=== PATIENT | male | born 1945 | race Caucasian/White ===

== ENCOUNTER 2019-03-17 13:21 | Outpatient (RCR) | payer OTHER, MEDICARE, MEDICAID, SELFPAY ==
[2019-03-17 16:15] LABS: Specific Gravity, Urine 1.005 (1.005-1.030); Urine Appearance SL Hazy (CLEAR); Urine Color Straw (Yellow); pH Urine 5 (5-7)
[2019-03-17 16:16] LABS: Add Urine Microscopic? YES; Bilirubin Urine Neg (NEGATIVE); Blood Urine 3+ (Negative); Glucose Urine UA Norm (Normal); Ketones Urine Negative (Negative); Leukocyte Esterase Urine Negative (Negative); Nitrate Urine Positive (Negative); Protein Urine Neg (Negative); Urobilinogen Urine Norm (Negative)
[2019-03-17 16:17] LABS: Add Urine Culture? Yes; Bacteria Urine 3+; Squamous Epithelial Cell Urine RARE (0-5)
== END 2019-04-02 23:59 | disposition home or self-care (01) ==
LOC: LAB 13:21
PROVIDERS: Family Provider Family Medicine; Visit Provider Internal Medicine
DX: Z01.89 Encounter for other specified special examinations (principal)
CPT/HCPCS: 81003; 87077; 87086; 87186

== ENCOUNTER 2019-05-04 08:01 | Inpatient (IN) | payer MEDICARE, MEDICAID, OTHER, SELFPAY ==
[2019-05-04] VITALS (12 sets, daily range): BP systolic 84–125; BP diastolic 50–75; PULSE 67–98; RESP 16–32; TEMP 36.4–37.3; O2SAT 78–98; BMI 28.2
--- NOTE | 2019-05-04 08:06 | ED_ITS ---
Entered by Nelly Sosa, acting as scribe for Kodak Dawkins DO HPI - SOB/Dyspnea General: Chief Complaint: General Medical Stated Complaint: weakness, dyspnea Time Seen by Provider: 05/04/19 08:10 Source: EMS Mode of arrival: EMS History of Present Illness: MD elicited complaint: shortness of breath and cough Onset (ago): day(s) (yesterday) Timing: constant and progressively worsening Severity: moderate Exacerbating factors: coughing Relieving factors: nothing Associated symptoms: Reports chest congestion and cough Treatment prior to arrival: oxygen Review of Systems General: Reports: 10 or more systems reviewed and unremarkable except in HPI and below and ROS unobtainable due to medical condition (pts is from assisted unable to answer questions) Resp: Reports: chest congestion PFSH ED PFSH: Social History Smoking and tobacco status: former smoker Physical Exam Const: COMMON NORMALS: average body habitus, no limitations, healthy appearing and well nourished HENMT: COMMON NORMALS: normocephalic, head/scalp atraumatic, hearing grossly normal bilaterally, external ears normal, EAC's normal, TM's normal bilaterally, external nose normal, nasal mucous membranes and turbinates normal, moist oral mucous membranes, oropharynx normal, dentition normal and gingiva normal HEAD & SCALP: normocephalic and atraumatic NOSE: external nose normal and nasal mucous membranes and turbinates normal EXTERNAL EAR: Yes external ears normal EXTERNAL AUDITORY CANAL: EAC's normal TYMPANIC MEMBRANE: TM's normal bilaterally Eye: COMMON NORMALS: PERRL, EOMs intact bilaterally, conjunctivae normal, no scleral icterus, no papilledema, normal visual nelson by confrontation and fundi normal bilaterally CONJUNCTIVA: Yes conjunctivae normal PUPIL: Yes PERRL DIRECT OPHTHALMOSCOPY: Yes no papilledema and Yes fundi normal bilaterally Neck/C-Spine: COMMON NORMALS: full ROM, no lymphadenopathy, supple, no meningeal signs, no JVD, thyroid normal and no carotid bruits THYROID: thyroid normal Chest: COMMONS NORMALS: inspection of chest normal and palpation of chest normal Cardio: COMMON NORMALS: no JVD, regular rate, regular rhythm, S1 normal heart sound, S2 normal heart sound, no gallops, no clicks, no murmurs, no rub and peripheral pulses 2+ throughout RATE: regular rate RHYTHM: regular rhythm HEART SOUNDS: S1 normal and S2 normal PERIPHERAL PULSES: pulses 2+ throughout GI: COMMON NORMALS: normal to inspection, nondistended, normoactive bowel sounds, soft to palpation, non-tender, no hepatosplenomegaly, no masses and no bruits PALPATION: Yes soft and Yes no hepatosplenomegaly : COMMON NORMALS: Yes no CVA tenderness BLADDER/KIDNEY EXAM: Yes no CVA tenderness Back/Pelvis: COMMON NORMALS: no CVA tenderness, thoracic and lumbar spine normal to inspection, no thoracic nor lumbar tenderness, thoraco-lumbar ROM normal and straight leg raise negative bilaterally Extremity: COMMON NORMALS: normal to inspection, full ROM, normal capillary refill, no joint enlargement, no clubbing, cyanosis or edema, no calf tenderness and no pedal edema Neuro: MENINGEAL SIGNS: Yes no meningeal signs Skin: COMMON NORMALS: no rashes or lesions noted, no wounds, skin turgor normal, no jaundice, no petechiae and no mottling GENERAL SKIN EXAM: no rashes or lesions noted and turgor normal Course Vital Signs: Vital signs: Vital Signs Temperature 98 F 05/04/19 08:03 Pulse Rate 91 05/04/19 08:03 Respiratory Rate 20 H 05/04/19 08:03 Blood Pressure 91/51 05/04/19 08:03 Pulse Oximetry 78 L 05/04/19 08:03 MDM - SOB/Dyspnea Lab Data: Labs: Lab Results 05/04/19 05/04/19 05/04/19 Range/Units 08:47 08:47 08:47 WBC (4.0-10.0) 10^3/ uL RBC (4.1-5.3) 10^6/u L Hgb (11.7-16.6) g/dL Hct (42.0-52.0) % MCV (80-94) fL MCH (28.0-34.0) pg MCHC (30.0-36.0) g/dL RDW (12.1-15.1) % Plt Count (130-400) 10^3/c mm MPV (7.4-10.4) fL Neut % (Auto) % Lymph % (Auto) % [place] % (Auto) % Eos % (Auto) % Baso % (Auto) % Neut # (Auto) (1.8-7.7) 10^3/u L Lymph # (Auto) (0.8-4.8) 10^3/u L [place] # (Auto) (0.2-0.9) 10^3/u L Eos # (Auto) (0.0-0.8) 10^3/u L Baso # (Auto) (0.0-0.1) 10^3/u L Nucleated RBC % (a uto) % Nucleated RBCs # /100WBC PT 14.80 H (10.5-13.3) SECO NDS INR 1.15 (0.8-1.2) Specimen Type Sample Site ABG pH (7.35-7.45) ABG pCO2 (35-45) mmHg ABG pO2 (80.0-100.0) mmH g ABG HCO3 (22-26) mmol/L ABG Base Excess (-2.0-2.0) mmol/ L John Test Hematocrit (42-52) % O2 Delivery Device O2 Liters/Min % FiO2 % Compliance Advisor ID Sodium 127 L (136-145) mmol/L Potassium 7.1 H* (3.5-5.1) mmol/L Chloride 92 L (98-107) mmol/L Carbon Dioxide 19 L (22-29) mmol/L Anion Gap 23.1 H (5-19) BUN 53 H (8-23) mg/dL Creatinine 2.0 H (0.7-1.2) mg/dL Glucose 157 H (65-115) mg/dL Lactic Acid 2.3 H (0.5-2.2) mmol/L Calcium 8.4 L (8.5-10.5) mg/dL Total Bilirubin 0.6 (0.15-1.2) mg/dL AST 69 H (0-40) U/L ALT 37 (0-41) U/L Alkaline Phosphata se 82 (40-130) IU/L Total Protein 7.1 (6.6-8.7) g/dL Albumin 3.0 L (3.5-5.2) g/dL Globulin 4.1 (1.3-4.6) g/dL Urine Color (Yellow) Urine Appearance (CLEAR) Urine pH (5-7) Ur Specific Gravit y (1.005-1.030) Urine Protein (Negative) Urine Glucose (UA) (Normal) Urine Ketones (Negative) Urine Blood (Negative) Urine Nitrate (Negative) Urine Bilirubin (NEGATIVE) Urine Urobilinogen (Negative) mg/dL Ur Leukocyte Erna ase (Negative) Urine RBC (0-2) /hpf Urine WBC (0-5) /hpf Ur Squamous Epith Cells (0-5) Urine Bacteria (NONE) Urine Mucus 05/04/19 05/04/19 05/04/19 Range/Units 08:47 08:51 09:19 WBC 17.7 H (4.0-10.0) 10^3/ uL RBC 3.56 L (4.1-5.3) 10^6/u L Hgb 8.4 L (11.7-16.6) g/dL Hct 31.0 L (42.0-52.0) % MCV 87.1 (80-94) fL MCH 23.6 L (28.0-34.0) pg MCHC 27.1 L (30.0-36.0) g/dL RDW 17.3 H (12.1-15.1) % Plt Count 317 (130-400) 10^3/c mm MPV 11.1 H (7.4-10.4) fL Neut % (Auto) 89.5 % Lymph % (Auto) 2.7 % [place] % (Auto) 7.4 % Eos % (Auto) 0.0 % Baso % (Auto) 0.1 % Neut # (Auto) 15.8 H (1.8-7.7) 10^3/u L Lymph # (Auto) 0.5 L (0.8-4.8) 10^3/u L [place] # (Auto) 1.3 H (0.2-0.9) 10^3/u L Eos # (Auto) 0.0 (0.0-0.8) 10^3/u L Baso # (Auto) 0.0 (0.0-0.1) 10^3/u L Nucleated RBC % (a uto) 0.2 % Nucleated RBCs # 0.0 /100WBC PT (10.5-13.3) SECO NDS INR (0.8-1.2) Specimen Type Arterial Sample Site Radial, left ABG pH 7.31 L (7.35-7.45) ABG pCO2 43.3 (35-45) mmHg ABG pO2 70.2 L (80.0-100.0) mmH g ABG HCO3 21.8 L (22-26) mmol/L ABG Base Excess -4.2 L (-2.0-2.0) mmol/ L John Test Pos Hematocrit 23.2 L (42-52) % O2 Delivery Device Nc O2 Liters/Min 4.0 % FiO2 36.0 % Compliance Advisor ID gd Sodium (136-145) mmol/L Potassium (3.5-5.1) mmol/L Chloride (98-107) mmol/L Carbon Dioxide (22-29) mmol/L Anion Gap (5-19) BUN (8-23) mg/dL Creatinine (0.7-1.2) mg/dL Glucose (65-115) mg/dL Lactic Acid (0.5-2.2) mmol/L Calcium (8.5-10.5) mg/dL Total Bilirubin (0.15-1.2) mg/dL AST (0-40) U/L ALT (0-41) U/L Alkaline Phosphata se (40-130) IU/L Total Protein (6.6-8.7) g/dL Albumin (3.5-5.2) g/dL Globulin (1.3-4.6) g/dL Urine Color Straw (Yellow) Urine Appearance Turbid (CLEAR) Urine pH 6.5 (5-7) Ur Specific Gravit y 1.015 (1.005-1.030) Urine Protein 3+ H (Negative) Urine Glucose (UA) Norm (Normal) Urine Ketones Negative (Negative) Urine Blood 3+ H (Negative) Urine Nitrate Negative (Negative) Urine Bilirubin Neg (NEGATIVE) Urine Urobilinogen Norm (Negative) mg/dL Ur Leukocyte Erna ase 2+ H (Negative) Urine RBC 25-40 H (0-2) /hpf Urine WBC >100 H (0-5) /hpf Ur Squamous Epith Cells 0-4 H (0-5) Urine Bacteria 3+ H (NONE) Urine Mucus 3+ Discharge Plan Discharge Condition: Fair Prescriptions: No Action A&D Ointment See Rx Instructions .ROUTE .COMPLEX RF: 0 metformin 500 mg Tablet 500 mg PO BID RF: 0 acetaminophen 325 mg Tablet 650 mg PO Q4H PRN (Reason: Pain) RF: 0 albuterol sulfate 2.5 mg /3 mL (0.083 %) Solution For Nebulization 2.5 mg INHALATION Q6H PRN (Reason: Shortness Of Breath) RF: 0 nystatin 100,000 unit/gram Ointment 1 applic TOPICAL BID RF: 0 [place] 5-325 mg Tablet 1 - 2 tab PO Q4H PRN (Reason: Pain) RF: 0 loperamide 2 mg Tablet 2 mg PO QID PRN (Reason: Diarrhea) RF: 0 Milk of Magnesia 400 mg/5 mL Suspension 30 ml PO DAILY PRN (Reason: Constipation) RF: 0 Vitamin C 500 mg Tablet 500 mg PO BID RF: 0 bisacodyl 10 mg Suppository 10 mg [place] DAILY PRN (Reason: Constipation) RF: 0 oseltamivir 75 mg Capsule 75 mg PO DAILY RF: 0 ferrous sulfate 325 mg (65 mg iron) Tablet 325 mg PO BID RF: 0 Enema Disposable 19-7 gram/118 mL Enema 118 ml [place] DAILY PRN (Reason: Constipation) RF: 0 Colace 100 mg Capsule 100 mg PO BID RF: 0 Santyl 250 unit/gram Ointment See Rx Instructions .ROUTE .COMPLEX RF: 0 metoprolol tartrate 25 mg Tablet 12.5 mg PO BID RF: 0 selenium sulfide 2.25 % Shampoo 1 applic TOPICAL PRN RF: 0 Calzinc See Rx Instructions .ROUTE .COMPLEX RF: 0 Coding Level of Care Code ED Corporate Intern for Chg Fwd Exam Comprehensive The documentation recorded by the Ian gamble Bridget Annette, accurately reflects the service I personally performed and the decisions made by Mariza solano Donald P, DO May 04, 2019 08:01
--- NOTE | 2019-05-04 08:13 | XR_ITS ---
WS: [id number] XR chest 1V portable [id number] REASON FOR EXAM: dyspnea FINDINGS: The right lower lung shows considerable pleural effusion. The extends to the seventh inters pace. There is coronary bypass changes seen. The left lungs as well aerated. XR/XR chest 1V portable [id number] IMPRESSION: Right pleural effusion
[2019-05-04] MEDS: sodium chloride 0.9% 1,000 ML 250 ML IV (08:36)
[2019-05-04 08:54] LABS: Basophils % 0.1 %; Hemoglobin 8.4 g/dL (11.7-16.6); Lymphocytes # 0.5 10^3/uL (0.8-4.8); Lymphocytes % 2.7 %; Mean Corpuscular HGB Conc 27.1 g/dL (30.0-36.0); Mean Corpuscular Hemoglobin 23.6 pg (28.0-34.0); Mean Corpuscular Volume 87.1 fL (80-94); Mean Platelet Volume 11.1 fL (7.4-10.4); Monocytes # 1.3 10^3/uL (0.2-0.9); Monocytes % 7.4 %; Neutrophils # 15.8 10^3/uL (1.8-7.7); Neutrophils % 89.5 %; Nucleated Red Blood Cells % 0.2 %; Platelet Count 317 10^3/cmm (130-400); Red Blood Count 3.56 10^6/uL (4.1-5.3); Red Cell Distribution Width 17.3 % (12.1-15.1); White Blood Count 17.7 10^3/uL (4.0-10.0)
[2019-05-04] MEDS: piperacillin-tazobactam 4.5 GM in sodium chloride 0.9% (plus) 50 ML IV (09:03)
[2019-05-04 09:09] LABS: ABG PCO2 43.3 mmHg (35-45); ABG PH Result 7.31 (7.35-7.45); Arterial Blood Gas Hematocrit 23.2 % (42-52); Base Excess ABG -4.2 mmol/L (-2.0-2.0); Blood Gas Allen Test Pos; Blood Gas Sample Site Radial, left; Blood Gas Sample Type Arterial; HCO3 ABG 21.8 mmol/L (22-26); Oxygen Device NC; PO2 ABG 70.2 mmHg (80.0-100.0)
[2019-05-04 09:13] LABS: Alanine Aminotransferase 37 U/L (0-41); Alkaline Phosphatase 82 IU/L (40-130); Anion Gap 23.1 (5-19); Blood Urea Nitrogen 53 mg/dL (8-23); Calcium 8.4 mg/dL (8.5-10.5); Carbon Dioxide 19 mmol/L (22-29); Chloride 92 mmol/L (98-107); Globulin 4.1 g/dL (1.3-4.6); Glucose 157 mg/dL (65-115); Lactic Sepsis W/Reflex 2.3 mmol/L (0.5-2.2); Sodium 127 mmol/L (136-145); Total Bilirubin 0.6 mg/dL (0.15-1.2); Total Protein 7.1 g/dL (6.6-8.7)
[2019-05-04 09:20] LABS: Aspartate Amino Transferase 69 U/L (0-40); Potassium 7.1 mmol/L (3.5-5.1)
--- NOTE | 2019-05-04 09:24 | PC.NURSE ---
residential monitor, pulse oximeter and NIBP monitor placed on patient; hall monitor- Lead I, II and III; monitor alarms on.
--- NOTE | 2019-05-04 09:25 | PC.NURSE ---
hoisting laborer, pulse oximeter and NIBP monitor placed on patient; comprehensive ophthalmologist- Lead I, II and III; monitor alarms on.
[2019-05-04 09:26] LABS: INR 1.15 (0.8-1.2)
--- NOTE | 2019-05-04 09:27 | PC.PHAR ---
CONSTANZA FROM [facility] STATES THAT THE PTS ELIQUIS 5MG AND 81MG ASPIRIN WAS DCED ON 04/28/2019
[2019-05-04 09:34] LABS: Add Urine Microscopic? YES; Bilirubin Urine Neg (NEGATIVE); Blood Urine 3+ (Negative); Glucose Urine UA Norm (Normal); Ketones Urine Negative (Negative); Leukocyte Esterase Urine 2+ (Negative); Nitrate Urine Negative (Negative); Protein Urine 3+ (Negative); Specific Gravity, Urine 1.015 (1.005-1.030); Urine Appearance Turbid (CLEAR); Urine Color Straw (Yellow); Urobilinogen Urine Norm (Negative); pH Urine 6.5 (5-7)
[2019-05-04] MEDS: sodium polystyrene sulfonate 15 gm/60 mL Btl PO (09:37)
[2019-05-04] MEDS: insulin regular-human 100 units/1 mL 4 UNIT IVP (09:38)
[2019-05-04 09:39] LABS: RBC Urine 25-40 /hpf (0-2); Squamous Epithelial Cell Urine 0-4 (0-5); WBC Urine >100 /hpf (0-5)
[2019-05-04 09:40] LABS: Add Urine Culture? Yes; Bacteria Urine 3+; Mucus Urine 3+
--- NOTE | 2019-05-04 10:04 | PC.NURSE ---
PHYSICAL ASSESSMENT Chief Complaint: Weakness, Shortness of breath GENERAL / NEURO / PSYCH: Alert. Does not know his name. Does not know the date or time, Does not know his age. He appears comfortable. Denies pain at this time. BLOSSOM COMA SCORE: 14- Confused HEENT: No facial asymmetry noted. Mucous membranes are pink. RESPIRATORY: Not in respiratory distress. Chest nontender. Rhonchi breath sounds noted. CVS: Capillary refill less than 2 seconds. Pulses within normal limits. GI / : Abdomen soft and nontender and normal bowel sounds. SKIN: Skin intact. Skin is warm and dry. Normal skin turgor. - Extremities: Right arm contracted (preexisting) Right leg amputated (above knee) . Patient able to move left arm and leg. Strength appears to be in normal limits for patient.
[2019-05-04 10:38] LABS: Reflex Lactate Order REFLEX LACTIC ORDERD
[2019-05-04 11:28] LABS: Glucose Point of Care 190 mg/dL (70-110)
--- NOTE | 2019-05-04 11:55 | PC.NURSE ---
Patient resting at this time. No needs.
[2019-05-04 12:17] LABS: Lactic Acid level (Lactate) 2.1 mmol/L (0.5-2.2)
--- NOTE | 2019-05-04 12:19 | PC.NURSE ---
Patient to CT via stretcher
--- NOTE | 2019-05-04 12:21 | P.HP_ITS ---
Providers/Chief Complaint Admitting Physician: Adeline Nieves DO Primary Care Provider: Dr. Umberto Terry Chief Complaint: weakness, dyspnea History of Present Illness Blaine Garcia is a 73 year old male with a past medical history of CVA and hypertension along with [id number] amputation on the right that presented to the emergency department today due to increasing weakness and dyspnea. Patient has been a resident at [facility] due to his deficits f rom prior strokes. He presented today due to increasing dyspnea. Patient has chronic aphasia but appears to be at baseline. He reports increasing cough and upper airway congestion. He states that he does not typically wear oxygen at the [facility]. Patient denies any fevers or chills, no known sick contacts. Patient was seen and evaluated in the emergency department noted to have concern for right lower lobe pneumonia and acute renal failure. Review of Systems Const: Denies: fever or chills Eyes: Denies: change in vision ENMT: Denies: nasal congestion Card: Reports: edema; Denies: chest pain or palpitations Resp: Reports: shortness of breath and productive cough; Denies: coughing up blood GI: Denies: abdominal pain, nausea, vomiting, diarrhea, constipation, blood in stool or black tarry stool : Reports: other (Chronic Morin catheter) Musc: Reports: other (Right BKA) Skin/Breast: Denies: rash or new lesion Neuro: Denies: headache or dizziness Psych: Denies: anxiety or depression Endo: Denies: excessive urination or hot flashes Toby/Lymph: Denies: easy bruising or easy bleeding Medications/Allergies Home Medications Medication Instructions Recorded Confirmed Last Taken Type A&D Ointment See Rx Instructions .ROUTE .COMPLEX 05/04/19 05/04/19 Unknown History Calzinc See Rx Instructions .ROUTE .COMPLEX 05/04/19 05/04/19 Unknown History acetaminophen 650 mg PO Q4H PRN 05/04/19 05/04/19 Unknown History albuterol sulfate 2.5 mg INHALATION Q6H PRN 05/04/19 05/04/19 Unknown History ascorbic acid (vitamin C) [Vitamin 500 mg PO BID 05/04/19 05/04/19 05/03/19 History C] bisacodyl 10 mg [place] DAILY PRN 05/04/19 05/04/19 Unknown History collagenase clostridium histo. See Rx Instructions .ROUTE .COMPLEX 05/04/19 05/04/19 Unknown History [Santyl] docusate sodium [Colace] 100 mg PO BID 05/04/19 05/04/19 05/01/19 History ferrous sulfate 325 mg PO BID 05/04/19 05/04/19 05/03/19 History hydrocodone-acetaminophen [[place]] 1 - 2 tab PO Q4H PRN 05/04/19 05/04/19 Unknown History loperamide 2 mg PO QID PRN 05/04/19 05/04/19 Unknown History magnesium hydroxide [Milk of 30 ml PO DAILY PRN 05/04/19 05/04/19 Unknown History Magnesia] metformin 500 mg PO BID 05/04/19 05/04/19 05/03/19 History metoprolol tartrate 12.5 mg PO BID 05/04/19 05/04/19 05/03/19 08:00 History nystatin 1 applic TOPICAL BID 05/04/19 05/04/19 Unknown History oseltamivir 75 mg PO DAILY 05/04/19 05/04/19 05/03/19 History selenium sulfide 1 applic TOPICAL PRN 05/04/19 05/04/19 Unknown History sodium phosphates [Enema 118 ml [place] DAILY PRN 05/04/19 05/04/19 Unknown History Disposable] Allergies Allergy/AdvReac Type Severity Reaction Status Date / Time No Known Allergies Allergy Verified 05/04/19 08:20 PFSH Acute PFSH: Social History Smoking and tobacco status: former smoker Alcohol intake: former Substance/Drug Use: never Vitals/I&O/Wt Last Vital Signs Temp 98 F 05/04/19 08:03 Pulse 91 05/04/19 12:02 Resp 18 05/04/19 12:02 BP 101/65 05/04/19 12:02 Pulse Ox 95 05/04/19 12:02 Weight last 48 hrs Weight 99.79 kg Physical Exam Const: COMMON NORMALS: alert GENERAL APPEARANCE: cooperative ORIENTATION/CONSCIOUSNESS: Yes awake and Yes oriented to person HENMT: COMMON NORMALS: normocephalic and head/scalp atraumatic HEAD & SCALP: normocephalic and atraumatic Eye: COMMON NORMALS: PERRL PUPIL: Yes PERRL Neck/C-Spine: COMMON NORMALS: supple GENERAL: Yes normal visual inspection Resp: OTHER: Oxygen by nasal cannula in place, mild accessory muscle use, upper airway secretions present and difficult to clear, patient with coarse breath sounds on the right and expiratory wheezing bilaterally Cardio: COMMON NORMALS: regular rate and regular rhythm RATE: regular rate RHYTHM: regular rhythm GI: COMMON NORMALS: soft to palpation and non-tender INSPECTION: No abdominal distension AUSCULTATION: Yes normoactive bowel sounds PALPATION: Yes soft : OTHER: Chronic indwelling Morin catheter Extremity: NARRATIVE EXTREMITY EXAM: Right [id number] amputation, pitting edema in the lower extremity on the left Neuro: SENSORIUM/ORIENTATION: Yes alert OTHER: Patient has chronic aphasia which is unchanged, able to speak 2-3 words at a time and answer questions appropriately. Patient has chronic contracture in the right upper extremity and flaccidity Psych: COMMON NORMALS: cooperative Data : 05/04/19 08:47 05/04/19 12:38 Micro: Microbiology 05/04/19 08:57 Blood Culture - Preliminary Blood SPECIMEN COLLECTED 05/04/19 08:47 Blood Culture - Preliminary Blood SPECIMEN COLLECTED CXR: I personally reviewed and interpreted this imaging study as follows: Radiologist's impression: XR/XR chest 1V portable [id number] IMPRESSION: Right pleural effusion A&P Assessment and plan (1) Aspiration pneumonia: Concern for aspiration pneumonia Continue with respiratory therapy to assess and treat, atropine drops as needed for upper airway secretions. N.p.o. until speech therapy evaluation. Continue on Zosyn at this time and will continue to monitor respiratory status closely Status: Acute Code(s): J69.0 - Pneumonitis due to inhalation of food and vomit (2) Acute renal insufficiency: Acute renal failure with hyperkalemia. Patient appears to be dry on physical exam but has chest x-ray findings concerning for pleural effusion, will continue to monitor fluid intake closely. Likely secondary to urinary tract inf ection and intravascular volume depletion, will obtain renal ultrasound for further evaluation Patient is followed closely by urology with chronic indwelling Morin catheter placement Continue to hold nephrotoxic agents Status: Acute Code(s): N28.9 - Disorder of kidney and ureter, unspecified (3) Anemia: Acute on chronic anemia. No evidence of any active bleeding at this time. Patient is on chronic iron and recently taken off of anticoagulation. Status: Acute Qualifiers: Anemia type: unspecified type Qualified Code(s): D64.9 - Anemia, unspecified Code(s): D64.9 - Anemia, unspecified (4) Pleural effusion: Right-sided pleural effusion with concern for pneumonia, will continue to treat with antibiotics and consider thoracentesis if indicated Status: Acute Code(s): J90 - Pleural effusion, not elsewhere classified (5) Acute UTI: Urinary tract infection with a history of ESBL E. coli on previous cu ltures with chronic indwelling Morin catheter. Continue with broad-spectrum antibiotics, Zosyn at this time and adjust antibiotic coverage as indicated Status: Acute Code(s): N39.0 - Urinary tract infection, site not specified (6) Acute hyperkalemia: Will recheck at this time. Given insulin and D50 in the ER, will give calcium gluconate at this time. Recheck renal function and plan as above Status: Acute Code(s): E87.5 - Hyperkalemia (7) Sepsis: Sepsis as documented by tachycardia, leukocytosis, tachypnea Continue with Zosyn at this time, blood culture and urine culture ordered. With concern for aspiration pneumonia and urinary tract infection with chronic indwelling Morin catheter Status: Acute Qualifiers: Sepsis acute organ dysfunction status: without acute organ dysfunction Sepsis type: sepsis due to unspecified organism Qualified Code(s): A41.9 - Sepsis, unspecified organism Code(s): A41.9 - Sepsis, unspecified organism Additional A&P Information 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 Patient has chronic a aphasia. He is at baseline at this time Chronic Morin catheter placement: Followed by urology History of peripheral vascular disease status post right [id number]-zpn-iqic amputation Coronary artery disease with a history of CABG History of DVT: No longer on anticoagulation due to a chronic anemia Diastolic congestive heart failure: Appears to be slightly hypovolemic at this time we will continue to monitor closely with gentle IV fluids Hypertension: Patient is currently with soft blood pressures, therefore will hold off on any daily medications. 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 until speech therapy evaluation due to concern for aspiration CODE STATUS: Do Not Resuscitate by [facility] records Attestations Medical Necessity Statement*: Patient requires hospitalization due to concern for aspiration pneumonia and urinary tract infection. Expected stay greater than 2 midnights Coding Level of Care Code Acute Estate Manager for g Fwd Exam Detailed Diagnoses Aspiration pneumonia J69.0 Acute renal insufficiency N28.9 Anemia D64.9 Anemia type: unspecified type Pleural effusion J90 Acute UTI N39.0 Acute hyperkalemia E87.5 Sepsis A41.9 Sepsis acute organ dysfunction status: without acute organ dysfunction Sepsis type: sepsis due to unspecified organism
--- NOTE | 2019-05-04 12:48 | US_ITS ---
WS: [id number] Bilateral renal ultrasound, 05/04/2019 Clinical Data: DARRELL Comparison: Right upper quadrant ultrasound, 10/04/2010. Findings: The right kidney measures 10.1 cm x 6.7 cm x 6.5 cm and the left kidney is 10.8 cm x 5.1 cm x 4.9 cm. There are no cysts, masses or hydronephrosis. The renal cortical margin is normal. No renal calculi are seen. The abdominal aorta and inferior vena cava show no vascular abnormalities. The bladder was scanned and was not remarkable. US/US renal BI* [id number] Impression: Negative bilateral renal ultrasound.
[2019-05-04] MEDS: calcium gluconate 0.1 gm/mL 10% SDV 10mL 1 GM IVP (12:57)
[2019-05-04 13:20] LABS: Anion Gap 22.3 (5-19); Blood Urea Nitrogen 60 mg/dL (8-23); Calcium 8.3 mg/dL (8.5-10.5); Carbon Dioxide 19 mmol/L (22-29); Chloride 95 mmol/L (98-107); Glucose 165 mg/dL (65-115); Osmolality Calculated 272 mOsm/kg (285-295); Potassium 6.33; Sodium 130 mmol/L (136-145)
[2019-05-04] MEDS: sodium chloride 0.9% 1,000 ML 100 ML IV (16:24)
[2019-05-04] MEDS: piperacillin-tazobactam 3.375 GM in sodium chloride 0.9% (plus) 50 ML IV ×2 (16:24→23:49)
[2019-05-04 16:59] LABS: Glucose Point of Care 152 mg/dL (70-110)
[2019-05-04] MEDS: metoprolol tartrate 25 mg Tablet 12.5 MG PO (18:38)
[2019-05-04] MEDS: ferrous sulfate EC 325 mg Tablet PO (18:39)
[2019-05-04] MEDS: HYDROcodone-acetaminophen 5-325 mg Tablet PO (20:56)
[2019-05-04 21:26] LABS: Influenza A by IFA Negative (Negative); Influenza B by IFA Negative (Negative)
[2019-05-05] VITALS (16 sets, daily range): BP systolic 70–134; BP diastolic 46–76; PULSE 77–91; RESP 16–30; TEMP 36.2–37.2; O2SAT 91–97
--- NOTE | 2019-05-05 00:31 | PC.NURSE ---
Patient's blood pressure is low 70/52. Nurse been notified.
--- NOTE | 2019-05-05 00:45 | PC.NURSE ---
Manual blood pressure 70/52 heart rate 85, patient asymptomatic. Dr. Chandler was notified, awaiting further orders. Will continue to monitor patient.
[2019-05-05 03:54] LABS: Hematocrit 27.4 % (42.0-52.0); Hemoglobin 7.1 g/dL (11.7-16.6); Lymphocytes # 0.5 10^3/uL (0.8-4.8); Lymphocytes % 3.3 %; Mean Corpuscular HGB Conc 25.9 g/dL (30.0-36.0); Mean Corpuscular Hemoglobin 22.9 pg (28.0-34.0); Mean Corpuscular Volume 88.4 fL (80-94); Mean Platelet Volume 11.1 fL (7.4-10.4); Monocytes # 1.4 10^3/uL (0.2-0.9); Monocytes % 9.6 %; Neutrophils # 12.3 10^3/uL (1.8-7.7); Neutrophils % 86.5 %; Nucleated Red Blood Cells % 0 %; Platelet Count 299 10^3/cmm (130-400); Red Cell Distribution Width 17.4 % (12.1-15.1); White Blood Count 14.2 10^3/uL (4.0-10.0)
[2019-05-05 04:04] LABS: Anion Gap 17.9 (5-19); Blood Urea Nitrogen 54 mg/dL (8-23); Calcium 8.2 mg/dL (8.5-10.5); Carbon Dioxide 22 mmol/L (22-29); Chloride 97 mmol/L (98-107); Glucose 161 mg/dL (65-115); Osmolality Calculated 274 mOsm/kg (285-295); Potassium 5.9 mmol/L (3.5-5.1); Sodium 131 mmol/L (136-145)
[2019-05-05 06:14] LABS: Glucose Point of Care 168 mg/dL (70-110)
[2019-05-05 06:14] LABS: Glucose Point of Care 171 mg/dL (70-110)
[2019-05-05] MEDS: piperacillin-tazobactam 3.375 GM in sodium chloride 0.9% (plus) 50 ML IV ×2 (09:26→19:18)
[2019-05-05] MEDS: ferrous sulfate EC 325 mg Tablet PO ×2 (09:27→18:43)
[2019-05-05] MEDS: HYDROcodone-acetaminophen 5-325 mg Tablet PO (09:44)
--- NOTE | 2019-05-05 10:57 | USCV_ITS ---
Blaine Garcia Age: 73 Gender: M : 1945 Exam Date: 05/05/2019 16:34 Ordering Phys: Adeline Nieves DO Technologist: Melissa Livingston [place] [facility] [place]: swelling HISTORY: Upper extremity swelling. PROCEDURES: Venous duplex imaging was performed in only the right upper extremity. The following venous structures were evaluated: internal jugular vein, subclavian vein, axillary vein, and brachial veins. In addition, the basilic vein, cephalic vein, radial vein, and ulnar vein. Serial compression, augmentation maneuvers, and spectral Doppler flow evaluation were performed. FINDINGS: Limited visulization of right upper extremity due to edema. No evidence of DVT seen at this time. Veins appear to have pulsatile flow. Multiple echolucent areas in the subcutaneous tissue CONCLUSIONS No evidence of venous thrombosis in the above-mentioned identifiable veins of the right upper extremity. Abnormal flow pattern, may suggest high venous pressure. Features of edema in the subcutaneous tissue Dr Linwood Carlson MD [facility] (Electronically Signed) Final Date: 06 May 2019 09:01 S
[2019-05-05 10:58] LABS: Glucose Point of Care 178 mg/dL (70-110)
--- NOTE | 2019-05-05 12:03 | P.PN_ITS ---
Subjective Subjective: Interval history: Patient awake in bed at time of exam today. at bedside. Patient denies any chest pain, reported some continued shortness of breath. Reported swelling that is worse in the right upper extremity. Vitals/I&O/Wt Last Vital Signs Temp 97.5 F L 05/05/19 11:26 Pulse 77 05/05/19 11:26 Resp 26 H 05/05/19 11:26 BP 95/62 05/05/19 11:26 Pulse Ox 94 05/05/19 11:26 05/04/19 05/05/19 05/05/19 22:59 06:59 14:59 Intake Total 515 / 1565 50 / 1615 Output Total 650 / 650 110 / 760 Balance -135 / 915 -60 / 855 Weight last 48 hrs Weight 90.293 kg Weight 99.79 kg Physical Exam Const: COMMON NORMALS: alert GENERAL APPEARANCE: cooperative O RIENTATION/CONSCIOUSNESS: Yes awake HENMT: COMMON NORMALS: normocephalic and head/scalp atraumatic HEAD & SCALP: normocephalic and atraumatic Eye: COMMON NORMALS: PERRL PUPIL: Yes PERRL Neck/C-Spine: COMMON NORMALS: supple GENERAL: Yes normal visual inspection Resp: OTHER: Oxygen by nasal cannula in place, mild accessory muscle use, upper airway secretions present and difficult to clear, patient with coarse breath sounds on the right and expiratory wheezing bilaterally Cardio: COMMON NORMALS: regular rate and regular rhythm RATE: regular rate RHYTHM: regular rhythm GI: COMMON NORMALS: soft to palpation and non-tender INSPECTION: No abdominal distension AUSCULTATION: Yes normoactive bowel sounds PALPATION: Yes soft : OTHER: Chronic indwelling Morin catheter Extremity: NARRATIVE EXTREMITY EXAM: Right uxfye-[id number] amputation, pitting edema in the lower extremity on the left Neuro: SENSORIUM/ORIENTATION: Yes alert OTHER: Patient has chronic aphasia which is unchanged, able to speak 2-3 words at a time and answer questions appropriately. Patient has chronic contracture in the right upper extremity and flaccidity, right upper extremity with increased swelling Psych: COMMON NORMALS: cooperative Data : 05/05/19 03:00 05/05/19 03:00 Micro: Microbiology 05/04/19 08:57 Blood Culture - Preliminary Blood NEGATIVE TO DATE 05/04/19 08:47 Blood Culture - Preliminary Blood NEGATIVE TO DATE 05/04/19 09:19 Urine Culture - Preliminary Urine,Clean Catch Gram Negative Rods A&P Assessment and plan (1) Aspiration pneumonia: Concern for aspiration pneumonia Continue with respiratory therapy to assess and treat, atropine drops as needed for upper airway secretions. Continue on Zosyn Speech therapy evaluation showed no overt symptoms of aspiration. We will cont inue with close monitoring Repeat chest x-ray in the morning Status: Acute Code(s): J69.0 - Pneumonitis due to inhalation of food and vomit (2) Acute renal insufficiency: Acute renal failure with hyperkalemia. Potassium improved to 5.9, renal function shows improvement of BUN with slight increase in creatinine. Patient requires transfusion of packed red blood cells today. We will recheck renal function in the morning. IV Lasix after transfusion. Patient is followed closely by urology with chronic indwelling Morin catheter placement Continue to hold nephrotoxic agents Status: Acute Code(s): N28.9 - Disorder of kidney and ureter, unspecified (3) Anemia: Hemoglobin decreased to 7.1, due to hypoxia and acute kidney injury will transfuse 1 unit of packed red blood cells with IV Lasix x1 after transfusion. Transfusion due to patient's history of coronary artery disease with a goal hemoglobin greater than 8 Status: Acute Qualifiers: Anemia type: unspecified type Qualified Code(s): D64.9 - Anemia, unspecified Code(s): D64.9 - Anemia, unspecified (4) Pleural effusion: Right-sided pleural effusion, will give IV Lasix today and continue to monitor respiratory status closely. Patient may require thoracentesis Status: Acute Code(s): J90 - Pleural effusion, not elsewhere classified (5) Acute UTI: Urinary tract infection with a history of ESBL E. coli on previous cultures with chronic indwelling Morin catheter. Continue with broad-spectrum antibiotics, Zosyn at this time and adjust antibiotic coverage as indicated Status: Acute Code(s): N39.0 - Urinary tract infection, site not specified (6) Acute hyperkalemia: Potassium continues to slowly improve, 5.9 today Status: Acute Code(s): E87.5 - Hyperkalemia (7) Sepsis: Blood culture and urine culture pending Continue on Zosyn Status: Acute Qualifiers: Sepsis acute organ dysfunction status: without acute organ dysfunction Sepsis type: sepsis due to unspecified organism Qualified Code(s): A41.9 - Sepsis, unspecified organism Code(s): A41.9 - Sepsis, unspecified organism Additional A&P Information 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 Patient has chronic a aphasia. He is at baseline at this time Chronic Morin catheter placement: Followed by urology History of peripheral vascular disease status post right laxre-qwd-jfkz amputation Coronary artery disease with a history of CABG History of DVT: No longer on anticoagulation due to a chronic anemia Diastolic congestive heart failure: Appears to be slightly hypovolemic at this time we will continue to monitor closely with gentle IV fluids Hypertension: Patient is currently with soft blood pressures, therefore will hold off on any daily medications. 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
[2019-05-05] MEDS: FUROsemide 10 mg/mL SDV 4mL 40 MG IVP (14:44)
[2019-05-05 16:53] LABS: Glucose Point of Care 168 mg/dL (70-110)
--- NOTE | 2019-05-05 17:39 | PC.NURSE ---
DURING PT BLOOD TRANSFUSION, VITALS WERE NOT TAKEN DUE TO ULTRASOUND USING RIGHT ARM AND BLOOD TRANSFUSING IN LEFT ARM. 1550 VITALS WERE NOT DONE.
[2019-05-05 20:57] LABS: Hematocrit 36.1 % (42.0-52.0)
[2019-05-05 21:04] LABS: Hemoglobin 9.8 g/dL (11.7-16.6)
[2019-05-05 21:15] LABS: Glucose Point of Care 147 mg/dL (70-110)
[2019-05-05] MEDS: collagenase oint 30 gm TOPICAL (22:28)
[2019-05-06] VITALS (10 sets, daily range): BP systolic 90–98; BP diastolic 48–66; PULSE 84–95; RESP 17–20; TEMP 35.8–36.8; O2SAT 90–96
--- NOTE | 2019-05-06 00:18 | PC.NURSE ---
Since, the patient was asleep. The nurse told me not to worry about waking the patient up to do his midnight vital signs, do to not getting enough sleep and rest for days. Patient's oxygen, heart rate and respiration have been checked. Patient stayed asleep.
[2019-05-06] MEDS: piperacillin-tazobactam 3.375 GM in sodium chloride 0.9% (plus) 50 ML IV ×3 (02:26→20:40)
[2019-05-06 05:15] LABS: Basophils % 0.1 %; Hematocrit 35.3 % (42.0-52.0); Hemoglobin 9.7 g/dL (11.7-16.6); Lymphocytes # 0.5 10^3/uL (0.8-4.8); Mean Corpuscular HGB Conc 27.5 g/dL (30.0-36.0); Mean Corpuscular Hemoglobin 24.9 pg (28.0-34.0); Mean Corpuscular Volume 90.7 fL (80-94); Mean Platelet Volume 10.4 fL (7.4-10.4); Monocytes # 1.8 10^3/uL (0.2-0.9); Neutrophils # 13.9 10^3/uL (1.8-7.7); Neutrophils % 84.9 %; Nucleated Red Blood Cells % 0.2 %; Platelet Count 241 10^3/cmm (130-400); Red Blood Count 3.89 10^6/uL (4.1-5.3); Red Cell Distribution Width 17.5 % (12.1-15.1); White Blood Count 16.4 10^3/uL (4.0-10.0)
[2019-05-06 05:58] LABS: Anion Gap 20.3 (5-19); Blood Urea Nitrogen 65 mg/dL (8-23); Calcium 8.5 mg/dL (8.5-10.5); Carbon Dioxide 22 mmol/L (22-29); Chloride 94 mmol/L (98-107); Glucose 146 mg/dL (65-115); Osmolality Calculated 272 mOsm/kg (285-295); Potassium 6.3 mmol/L (3.5-5.1); Sodium 130 mmol/L (136-145)
--- NOTE | 2019-05-06 06:00 | XR_ITS ---
WS: [id number] XR chest 1V portable [id number] REASON FOR EXAM: hypoxia, CHF, pneumonia FINDINGS: Today's exam shows slight increased right pleural effusion. There is now an infiltrate in the right upper lung not well seen on last exam. Coronary bypass changes are again seen. XR/XR chest 1V portable [id number] IMPRESSION: Slight increased right pleural effusion. Infiltrate now seen in the right upper lung. Coronary bypass changes.
[2019-05-06 06:35] LABS: Glucose Point of Care 135 mg/dL (70-110)
[2019-05-06] MEDS: ferrous sulfate EC 325 mg Tablet PO ×2 (08:18→17:34)
--- NOTE | 2019-05-06 09:34 | XR_ITS ---
WS: [id number] XR chest 1V portable [id number] REASON FOR EXAM: post picc placement FINDINGS: A PICC line is seen extends from the left side the tip is in the lower half the superior ve na cava in excellent position. There is sternotomy changes noted. There is right pleural effusion. XR/XR chest 1V portable [id number] IMPRESSION: PICC line in excellent position extends from the left and is seen in the lower superior vena cava.
[2019-05-06 11:07] LABS: Glucose Point of Care 150 mg/dL (70-110)
--- NOTE | 2019-05-06 11:12 | USCV_ITS ---
Blaine Garcia Age: 73 Gender: M : 1945 Exam Date: 05/06/2019 16:15 Ordering Phys: Adeline Nieves DO Technologist: Sully Salas Exam Location: [facility] Indication: HYPOXIA AND RT PLEURAL EFFUSION BP: / HR: 96 Rhythm: Sinus Technical Quality: Adequate MEASUREMENTS (Male / Female) Normal Values 2D ECHO LV Diastolic Diameter PLAX 4.2 cm 4.2 - 5.9 / 3.9 - 5.3 cm LV Systolic Diameter PLAX 3.5 cm LV Chamber Size 4.6 cm IVS Diastolic Thickness 1.6 cm 0.6 - 1.0 / 0.6 - 0.9 cm IVS Systolic Thickness 1.7 cm LVPW Diastolic Thickness 1.5 cm 0.6 - 1.0 / 0.6 - 0.9 cm LVPW Systolic Thickness 2.0 cm RV Chamber Size 4.5 cm LVOT Diameter 2.0 cm LV Ejection Fraction 2D Teich 32.7 % LA Diameter 4.2 cm LA Width 2.4 cm LA Height 5.1 cm RA Width 6.0 cm RA Height 5.9 cm Aorta at Sinotubular Diameter 3.0 cm M-MODE LV Diastolic Diameter MM 4.1 cm 4.2 - 5.9 / 3.9 - 5.3 cm LV Systolic Diameter MM 2.9 cm LV Ejection Fraction MM Teich 58.1 % IVS Diastolic Thickness MM 1.2 cm 0.6 - 1.0 / 0.6 - 0.9 cm IVS Systolic Thickness MM 1.3 cm LVPW Diastolic Thickness MM 1.2 cm 0.6 - 1.0 / 0.6 - 0.9 cm LVPW Systolic Thickness MM 1.6 cm RV Diastolic Diameter MM 1.6 cm Aortic Annulus Diameter 3.5 cm LA Ao Ratio MM 1.2 MV E Point Septal Separation 1.5 cm DOPPLER AV Peak Velocity 181.0 cm/s LVOT Peak Velocity 62.0 cm/s AV Area Cont Eq vti 1.3 cm squared AV Area Cont Eq pk 1.1 cm squared MV Area PHT 5.0 cm squared MV E' Velocity 8.0 cm/s Mitral E to MV E' Ratio 12.3 Mitral E to LV E' Lateral Ratio 11.2 Mitral E to LV E' Septal Ratio 13.5 TR Peak Velocity 312.8 cm/s TR Peak Gradient 39.1 mmHg TR Mean Velocity 238.0 cm/s TR Mean Gradient 23.9 mmHg TR Velocity Time Integral 85.3 cm TV Peak E Velocity 59.0 cm/s Right Atrial Pressure 15.0 mmHg Pulmonary Artery Systolic Pressu 54.1 mmHg PV Peak Velocity 50.0 cm/s RV Acceleration Time 0.1 s RV Ejection Time 0.3 s RV AcT/ET 0.3 FINDINGS Left Ventricle Normal left ventricular cavity size. Moderately increased left ventricular wall thickness. Probably normal left ventricular systolic function with ejection fraction estimated at 55%. This study is inadequate for estimation of regional wall motion abnormality. Abnormal (paradoxical) septal motion consistent with postoperative status. Right Ventricle Right ventricle not well visualized. Right ventricular systolic pressure 54.1 mmHg. Right Atrium Mildly increased right atrial size. Left Atrium Mildly increased left atrial size. Mitral Valve Mildly thickened mitral valve. No mitral valve stenosis. Mild mitral valve regurgitation. Aortic Valve Aortic valve not well visualized. Mildly thickened and sclerotic trileaflet aortic valve. No aortic valve stenosis. Mild aortic valve regurgitation. Tricuspid Valve Structurally normal tricuspid valve. No tricuspid valve stenosis. [id number] tricuspid valve regurgitation. Pulmonic Valve Structurally normal pulmonic valve. No pulmonary valve stenosis. [id number] pulmonary valve regurgitation. Pericardium No pericardial effusion. Aorta Normal-sized aortic root. CONCLUSIONS 1. This is a technically difficult study with poor apical windows. 2. Normal left ventricular cavity size. Moderately increased left ventricular wall thickness. Probably normal left ventricular systolic function with ejection fraction estimated at 55%. This study is inadequate for estimation of regional wall motion abnormality. 3. Mild biatrial enlargement. 4. [id number] tricuspid valve regurgitation. 5. Moderate pulmonary hypertension with pulmonary artery pressure estimated 54 mmHg. 6. Mild mitral and aortic valve regurgitation. 7. Direct comparison to previous study dated 01/29/2018 is not possible given technically difficult study. Malrine Wilkerson MD (Electronically Signed) Final Date: 06 May 2019 18:33 S
--- NOTE | 2019-05-06 15:44 | PM.CONSULT ---
Providers/Reason For Consult Consulting Physican/Specialty*: Nephrology Reason for Consult*: Eval for hyperK, DARRELL Attending Physician: Adeline Nieves DO History of Present Illness History of Present Illness Blaine Garcia is a 73 year old male. Thank you for consultation, today I reviewed Mr Estevez for evaluation of acute renal insufficiency. He initially presented on Friday with a weakness and difficulty breathing. He has been treated with antibiotics to cover pneumonia and also to treat a urinary tract infection. His chest x-ray has demonstrated a significant right pleural effusion as well as evidence of congestion. Because of prior CVA's, is currently has quite profound a phase here, and can only answer questions in a yes or no manner. No history of acute chronic kidney disease. Has never seen a kidney specialist and never received haemodialysis. He denies any difficulty passing his urine and now has had a Morin catheter placed. His urine output has been very poor producing only one 50 mL over the last 12 hours. On admission his serum creatinine was elevated at 2mg/dL. since hospitalisation has increased and is now three. His potassium has also been elevated and is currently 6.3. He still has quite profound global oedema. In his left leg it is 3-4+, and if this is also evident in his arms as well. His blood pressure has been low over the last few days. Last night it was in this mid 70 systolic. Review of Systems Eyes: Denies: change in vision or blurry vision ENMT: Denies: throat pain or uvular edema Card: Reports: edema and swelling of feet/ankles; Denies: chest pain or lightheadedness Resp: Reports: shortness of breath; Denies: productive cough or non-productive cough Neuro: Denies: headache or numbness in extremities Meds/Allergies Home Medications and Allergies Home Medications Medication Instructions Recorded Confirmed Type A&D Ointment See Rx Instructions .ROUTE .COMPLEX 05/04/19 05/04/19 History Calzinc See Rx Instructions .ROUTE .COMPLEX 05/04/19 05/04/19 History acetaminophen 650 mg PO Q4H PRN 05/04/19 05/04/19 History albuterol sulfate 2.5 mg INHALATION Q6H PRN 05/04/19 05/04/19 History ascorbic acid (vitamin C) [Vitamin 500 mg PO BID 05/04/19 05/04/19 History C] bisacodyl 10 mg NM DAILY PRN 05/04/19 05/04/19 History collagenase clostridium histo. See Rx Instructions .ROUTE .COMPLEX 05/04/19 05/04/19 History [Santyl] docusate sodium [Colace] 100 mg PO BID 05/04/19 05/04/19 History ferrous sulfate 325 mg PO BID 05/04/19 05/04/19 History hydrocodone-acetaminophen [Roslyn] 1 - 2 tab PO Q4H PRN 05/04/19 05/04/19 History loperamide 2 mg PO QID PRN 05/04/19 05/04/19 History magnesium hydroxide [Milk of 30 ml PO DAILY PRN 05/04/19 05/04/19 History Magnesia] metformin 500 mg PO BID 05/04/19 05/04/19 History metoprolol tartrate 12.5 mg PO BID 05/04/19 05/04/19 History nystatin 1 applic TOPICAL BID 05/04/19 05/04/19 History oseltamivir 75 mg PO DAILY 05/04/19 05/04/19 History selenium sulfide 1 applic TOPICAL PRN 05/04/19 05/04/19 History sodium phosphates [Enema 118 ml NM DAILY PRN 05/04/19 05/04/19 History Disposable] Allergies Allergy/AdvReac Type Severity Reaction Status Date / Time No Known Allergies Allergy Verified 05/04/19 08:20 Current Medications Current Medications Generic Name Dose Route Start Last Admin Trade Name Freq PRN Reason Stop Dose Admin Hydrocodone Bitart/Acetaminophen 1 - 2 tab 05/04/19 13:44 05/05/19 09:44 Roslyn 5-325 Mg PO 1 tab Q4H PRN Administration Pain Atropine Sulfate 4 drop 05/04/19 13:44 05/05/19 16:13 Isopto Atropine SUBLINGUAL 4 drop Q2H PRN Administration SECRETIONS Collagenase 0 applic 05/04/19 13:44 05/05/19 22:28 Santyl TOPICAL 1 applic DAILY PRN Administration WOUND Ferrous Sulfate 325 mg 05/04/19 18:00 05/06/19 08:18 Ferrous Sulfate PO 325 mg BID BENITO Administration Piperacillin Sod/Tazobactam 50 mls @ 12.5 mls/hr 05/04/19 16:00 05/06/19 11:23 Sod 3.375 gm/ Sodium Chloride IV 12.5 mls/hr Q8H BENITO Administration Protocol Insulin Aspart 0 unit 05/04/19 18:00 05/06/19 11:27 Novolog SUBCUT 4 unit TIDWM BENITO Administration Protocol Metoprolol Tartrate 12.5 mg 05/04/19 18:00 05/06/19 08:19 Lopressor PO Not Given BID BENITO Nystatin 1 applic 05/04/19 18:00 05/06/19 08:19 Nystatin Cream TOPICAL Not Given BID BENITO PFSH Acute PFSH: Social History Smoking and tobacco status: former smoker Alcohol intake: former Substance/Drug Use: never Vitals/I&O/Wt Last Vital Signs Temp 98.1 F 05/06/19 15:08 Pulse 89 05/06/19 15:08 Resp 18 05/06/19 15:08 BP 98/62 05/06/19 15:08 Pulse Ox 91 05/06/19 15:08 05/06/19 05/06/19 05/06/19 06:59 14:59 22:59 Intake Total 100 / 800 720 / 720 Output Total 250 / 250 150 / 150 Balance -150 / 550 570 / 570 Weight last 48 hrs Weight 90.265 kg Weight 89.443 kg Weight 90.293 kg Physical Exam Const: COMMON NORMALS: no apparent distress and oriented x3 HENMT: THROAT: no uvular edema Neck/C-Spine: COMMON NORMALS: no JVD Chest: COMMONS NORMALS: inspection of chest normal CHEST: No abnormal inspection of the chest and No symmetrical chest wall rise Resp: COMMON NORMALS: normal respiratory effort, no retractions and no use of accessory muscles; negative for clear to auscultation bilaterally (decreased air entry into the right lung ) AUSCULTATION: not clear to auscultation bilaterally (decreased air entry into the right lung ) Cardio: COMMON NORMALS: no JVD and regular rate RATE: regular rate GI: COMMON NORMALS: normal to inspection, nondistended, normoactive bowel sounds Extremity: COMMON NORMALS: normal to inspection and no clubbing, cyanosis or edema Neuro: COMMON NORMALS: oriented x3 Data Micro: Micro: Microbiology 05/06/19 12:00 Blood Culture - Pr eliminary Blood SPECIMEN [facility] 05/06/19 12:01 Blood Culture - Pr eliminary Blood SPECIMEN [facility] 05/04/19 09:19 Urine Culture - Fi nal Urine,Clean Catch Proteus mirabil is 05/04/19 08:57 Blood Culture - Pr eliminary Blood Gram Negative R ods A&P Additional A&P Information 1. Acute kidney injury - this likely relates to renal hypoperfusion from low blood pressure. It will not be related to anything he has received during this hospital stay i.e. antibiotics et cetera as the kidney damage was evident on admission. - The presence of high levels of urinary protein do raise the possibility of a nephrotic syndrome, however, given his history of diabetes this likely relies to underlying diabetic glomerulopathy - his kidney function is currently very poor with the presence of hyperkalaemia this is concerning that he will need dialysis if this cannot be improved with conservative medical therapy - given the anasarca I'll give him lay six infusion at 10 mg per hour - to support his haemodynamic so give me between 10 mg three times a day - complete his work up to include urine protein quantification, serum protein electrophoresis, broadened serology to include SKY with reflex, compliments and ANCA levels. - Strict ins and outs 2. Pneumonia - is currently's receiving Zosyn. 3. Electrolytes. - Hyperkalemia; likely due to kidney damage, however, will exclude adrenal insufficiency. Lasix will help, Kayexalate 15g x 1 today with follow-up basic metabolic panel later on this evening. 4. Pleural effusion - Management by Dr Nieves. I know a tap is being considered. 5. Hypotension - will exclude adrenal insufficiency. I appreciate an echocardiogram has been requested. - empirical hydrocort 100mg iv Q6 in the meantime Thank you for consultation. This was performed using telemedicine and the aid of the bedside nurse. 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
[2019-05-06] MEDS: FUROsemide 100 MG in sodium chloride 0.9% 40 ML IV (15:58)
[2019-05-06] MEDS: sodium polystyrene sulfonate 15 gm/60 mL Btl PO (16:02)
[2019-05-06 16:26] LABS: Complement C3 82 mg/dL (90-180)
--- NOTE | 2019-05-06 16:34 | P.PN_ITS ---
Subjective Subjective: Interval history: Patient awake in bed at time of exam this morning. at bedside. Discussed with patient worsening renal function. Also discussed with patient and his concern for right-sided pleural effusion. Discussed with patient's and she reported that she would be okay with patient receiving thoracentesis if indicated. Discussed that he would likely need this procedure. Also discussed nephrology consultation Vitals/I&O/Wt Last Vital Signs Temp 98.1 F 05/06/19 15:08 Pulse 89 05/06/19 15:08 Resp 18 05/06/19 15:08 BP 98/62 05/06/19 15:08 Pulse Ox 91 05/06/19 15:08 05/06/19 05/06/19 05/06/19 06:59 14:59 22:59 Intake Total 100 / 800 720 / 720 Output Total 250 / 250 150 / 150 Balance -150 / 550 570 / 570 Weight last 48 hrs Weight 90.265 kg Weight 89.443 kg Weight 90.293 kg Physical Exam Const: COMMON NORMALS: alert GENERAL APPEARANCE: cooperative ORIENTATION/CONSCIOUSNESS: Yes awake HENMT: COMMON NORMALS: normocephalic and head/scalp atraumatic HEAD & SCALP: normocephalic and atraumatic Eye: COMMON NORMALS: PERRL PUPIL: Yes PERRL Neck/C-Spine: COMMON NORMALS: supple GENERAL: Yes normal visual inspection Resp: OTHER: Oxygen by nasal cannula in place, mild accessory muscle use, upper airway secretions present and difficult to clear, patient with coarse breath sounds on the right and expiratory wheezing bilaterally Cardio: COMMON NORMALS: regular rate and regular rhythm RATE: regular rate RHYTHM: regular rhythm GI: COMMON NORMALS: soft to palpation and non-tender INSPECTION: No abdominal distension AUSCULTATION: Yes normoactive bowel sounds PALPATION: Yes soft : OTHER: Chronic indwelling Morin catheter Extremity: NARRATIVE EXTREMITY EXAM: Right [id number] amputation, pitting edema in the lower extremity on the left Neuro: SENSORIUM/ORIENTATION: Yes alert OTHER: Patient has chronic aphasia which is unchanged, able to speak 2-3 words at a time and answer questions appropriately. Patient has chronic contracture in the right upper extremity and flaccidity, right upper extremity swelling Psych: COMMON NORMALS: cooperative Data : 05/06/19 05:01 05/06/19 05:01 Micro: Microbiology 05/06/19 12:00 Blood Culture - Preliminary Blood SPECIMEN COLLECTED 05/06/19 12:01 Blood Culture - Preliminary Blood SPECIMEN COLLECTED 05/04/19 09:19 Urine Culture - Final Urine,Clean Catch Proteus mirabilis 05/04/19 08:57 Blood Culture - Preliminary Blood Gram Negative Rods A&P Assessment and plan (1) Aspiration pneumonia: Concern for aspiration pneumonia Continue with respiratory therapy to assess and treat, atropine drops as needed for upper airway secretions. On Zosyn due to concern for aspiration pneumonia Status: Acute Code(s): J69.0 - Pneumonitis due to inhalation of food and vomit (2) Acute renal insufficiency: Acute renal failure with hyperkalemia. Continue to hold nephrotoxic agents Nephrology consulted today, appreciate recommendations and assistance in patient's care. Status: Acute Code(s): N28.9 - Disorder of kidney and ureter, unspecified (3) Anemia: Status post transfusion of 1 unit packed red blood cells, IV Lasix given after transfusion. Hemoglobin improved to 9.7 today. No evidence of any active bleeding. Status: Acute Qualifiers: Anemia type: unspecified type Qualified Code(s): D64.9 - Anemia, unspecified Code(s): D64.9 - Anemia, unspecified (4) Pleural effusion: Likely require thoracentesis tomorrow. Status: Acute Code(s): J90 - Pleural effusion, not elsewhere classified (5) Acute UTI: Urinary tract infection with a history of ESBL E. coli on previous cultures with chronic indwelling Morin catheter. Continue with broad-spectrum antibiotics, Zosyn at this time and adjust antibiotic coverage as indicated Status: Acute Code(s): N39.0 - Urinary tract infection, site not specified (6) Acute hyperkalemia: Continue with diuresis today Status: Acute Code(s): E87.5 - Hyperkalemia (7) Sepsis: Bacteremia with gram-negative rods, continue on Zosyn Urine culture today showing Proteus: Continue on Zosyn at this time and adjust antibiotics as blood culture returns PICC line placed 05/06/2019 Status: Acute Qualifiers: Sepsis acute organ dysfunction status: without acute organ dysfunction Sepsis type: sepsis due to unspecified organism Qualified Code(s): A41.9 - Sepsis, unspecified organism Code(s): A41.9 - Sepsis, unspecified organism Additional A&P Information 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 Patient has chronic a aphasia. He is at baseline at this time Chronic Morin catheter placement: Followed by urology History of peripheral vascular disease status post right efmak-ypc-[id number] amputation Coronary artery disease with a history of CABG History of DVT: No longer on anticoagulation due to a chronic anemia Diastolic congestive heart failure: Appears to be slightly hypovolemic at this time we will continue to monitor closely with gentle IV fluids. Echocardiogram ordered for further evaluation Hypertension: Patient is currently with soft blood pressures, therefore will hold off on any daily medications. 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 DVT prophylaxis: SCD to the left lower extremity, no pharmacologic prophylaxis due to concern for anemia Diet: Mechanical soft CODE STATUS: Do Not Resuscitate by [facility] records Attestations Medical Necessity Statement*: Patient requires further hospitalization due to acute kidney injury, aspiration pneumonia, bacteremia and urinary tract infection with chronic indwelling Morin catheter Coding Level of Care Code Acute Heel Stainer for [facility] Violet Diagnoses Aspiration pneumonia J69.0 Acute renal insufficiency N28.9 Anemia D64.9 Anemia type: unspecified type Pleural effusion J90 Acute UTI N39.0 Acute hyperkalemia E87.5 Sepsis A41.9 Sepsis acute organ dysfunction status: without acute organ dysfunction Sepsis type: sepsis due to unspecified organism
[2019-05-06 16:36] LABS: Thyroid Stimulating Hormone 4.88 uIU/mL (0.27-4.20)
[2019-05-06 16:38] LABS: Glucose Point of Care 168 mg/dL (70-110)
[2019-05-06 17:05] LABS: Cortisol Random 36.97 mcg/dL (2.47-19.5)
[2019-05-06] MEDS: HYDROcodone-acetaminophen 5-325 mg Tablet PO (18:02)
[2019-05-06 18:18] LABS: Urine Creatinine 75 mg/dL (39-259)
[2019-05-06 18:29] LABS: Urine Protein Random 95 mg/dL; Urine Random Sodium 14 mmol/L
[2019-05-06 19:04] LABS: Anion Gap 20.5 (5-19); Blood Urea Nitrogen 76 mg/dL (8-23); Calcium 8.2 mg/dL (8.5-10.5); Carbon Dioxide 22 mmol/L (22-29); Chloride 93 mmol/L (98-107); Glucose 224 mg/dL (65-115); Osmolality Calculated 277 mOsm/kg (285-295); Potassium 5.5 mmol/L (3.5-5.1); Sodium 130 mmol/L (136-145)
[2019-05-06 19:25] LABS: Urea Nitrogen,Urine Random 382 mg/dL
[2019-05-06] MEDS: midodrine 5 mg TABLET 10 MG PO (20:42)
[2019-05-06 20:53] LABS: Glucose Point of Care 170 mg/dL (70-110)
--- NOTE | 2019-05-06 21:02 | PC.NURSE ---
Vitals unable to obtain blood pressure Nurse notified.
[2019-05-07] VITALS (20 sets, daily range): BP systolic 72–115; BP diastolic 54–82; PULSE 80–92; RESP 11–19; TEMP 35.7–36.8; O2SAT 90–99; BMI 26.3
[2019-05-07 00:38] LABS: Glucose Point of Care 163 mg/dL (70-110)
[2019-05-07] MEDS: FUROsemide 100 MG in sodium chloride 0.9% 40 ML IV ×3 (00:49→20:57)
[2019-05-07] MEDS: piperacillin-tazobactam 3.375 GM in sodium chloride 0.9% (plus) 50 ML IV ×2 (02:52→11:51)
--- NOTE | 2019-05-07 05:26 | PC.NURSE ---
Morin bag and line replaced. Catheter left in place.
[2019-05-07 06:08] LABS: Basophils % 0.1 %; Hematocrit 32.5 % (42.0-52.0); Hemoglobin 8.9 g/dL (11.7-16.6); Lymphocytes # 0.4 10^3/uL (0.8-4.8); Lymphocytes % 2.8 %; Mean Corpuscular HGB Conc 27.4 g/dL (30.0-36.0); Mean Corpuscular Hemoglobin 25.2 pg (28.0-34.0); Mean Corpuscular Volume 92.1 fL (80-94); Mean Platelet Volume 10.7 fL (7.4-10.4); Monocytes # 0.8 10^3/uL (0.2-0.9); Monocytes % 5.3 %; Neutrophils # 14.4 10^3/uL (1.8-7.7); Neutrophils % 90.7 %; Nucleated Red Blood Cells % 0.1 %; Platelet Count 231 10^3/cmm (130-400); Red Blood Count 3.53 10^6/uL (4.1-5.3); Red Cell Distribution Width 18.4 % (12.1-15.1); White Blood Count 15.8 10^3/uL (4.0-10.0)
[2019-05-07 06:31] LABS: Alanine Aminotransferase 31 U/L (0-41); Albumin Level 2.7 g/dL (3.5-5.2); Alkaline Phosphatase 72 IU/L (40-130); Anion Gap 21.9 (5-19); Aspartate Amino Transferase 31 U/L (0-40); Blood Urea Nitrogen 69 mg/dL (8-23); Calcium 8.3 mg/dL (8.5-10.5); Carbon Dioxide 21 mmol/L (22-29); Chloride 93 mmol/L (98-107); Glucose 166 mg/dL (65-115); Potassium 5.9 mmol/L (3.5-5.1); Sodium 130 mmol/L (136-145); Total Bilirubin 0.4 mg/dL (0.15-1.2); Total Protein 6.7 g/dL (6.6-8.7)
[2019-05-07 07:24] LABS: Glucose Point of Care 173 mg/dL (70-110)
[2019-05-07 08:22] LABS: PROTEIN, TOTAL 5.8 g/dL (6.1-8.1)
[2019-05-07] MEDS: midodrine 5 mg TABLET 10 MG PO ×3 (09:10→20:57)
[2019-05-07] MEDS: ferrous sulfate EC 325 mg Tablet PO ×2 (09:11→17:43)
[2019-05-07] MEDS: metoprolol tartrate 25 mg Tablet 12.5 MG PO (09:15)
--- NOTE | 2019-05-07 11:02 | PM.PN ---
Subjective Subjective: Interval history: Patient awake in bed at time of exam today. Shook his head no that he was having any chest pain. Reported continued shortness of breath. Vitals/I&O/Wt Last Vital Signs Temp 98.3 F 05/07/19 08:00 Pulse 92 05/07/19 08:00 Resp 16 05/07/19 08:00 BP 115/82 05/07/19 08:00 Pulse Ox 97 05/07/19 08:00 05/06/19 05/07/19 05/07/19 22:59 06:59 14:59 Intake Total 170 / 890 249.45 / 1139.45 66.13 / 66.13 Output Total 200 / 350 220 / 570 Balance -30 / 540 29.45 / 569.45 66.13 / 66.13 Weight last 48 hrs Weight 90.492 kg Weight 90.265 kg Weight 89.443 kg Physical Exam Const: COMMON NORMALS: alert GENERAL APPEARANCE: cooperative ORIENTATION/CONSCIOUSNESS: Yes awake HENMT: COMMON NORMALS: normocephalic and head/scalp atraumatic HEAD & SCALP: normocephalic and atraumatic Eye: COMMON NORMALS: PERRL PUPIL: Yes PERRL Neck/C-Spine: COMMON NORMALS: supple GENERAL: Yes normal visual inspection Resp: OTHER: Nasal cannula in place, diminished breath sounds in the right chest with upper airway congestion Cardio: COMMON NORMALS: regular rate and regular rhythm RATE: regular rate RHYTHM: regular rhythm GI: COMMON NORMALS: soft to palpation and non-tender INSPECTION: No abdominal distension AUSCULTATION: Yes normoactive bowel sounds PALPATION: Yes soft : OTHER: Chronic indwelling Morin catheter Extremity: NARRATIVE EXTREMITY EXAM: Right rozyw-jct-jhae amputation, pitting edema in the lower extremity on the left Neuro: SENSORIUM/ORIENTATION: Yes alert OTHER: Patient has chronic aphasia which is unchanged, Patient has chronic contracture in the right upper extremity and flaccidity, right upper extremity swelling Psych: COMMON NORMALS: cooperative Data : 05/07/19 05:20 05/07/19 05:20 Micro: Microbiology 05/06/19 12:00 Blood Culture - Preliminary Blood SPECIMEN COLLECTED 05/06/19 12:01 Blood Culture - Preliminary Blood SPECIMEN COLLECTED 05/04/19 09:19 Urine Culture - Final Urine,Clean Catch Proteus mirabilis A&P Assessment and plan (1) Aspiration pneumonia: Initial concern for aspiration pneumonia But patient also with large pleural effusion on the right. Initially on Zosyn due to concern for pneumonia. However more likely patient symptom from urinary tract infection and his respiratory symptoms were all from right-sided effusion. Will de-escalate antibiotic coverage and continue on Rocephin at this time. Status: Acute Code(s): J69.0 - Pneumonitis due to inhalation of food and vomit (2) Acute renal insufficiency: Appreciate nephrology consultation. BUN improving today slightly with creatinine remaining at 3.3 and patient remaining hyperkalemic. May ultimately require dialysis if no improvement. This was discussed with patient's today, she is uncertain if she would want dialysis for him. She will discussed with patient tomorrow and make this decision if indicated. Concern for renal hypoperfusion therefore continued on Midodrine. On Lasix drip per nephrology. Will follow up with nephrology recommendations. Status: Acute Code(s): N28.9 - Disorder of kidney and ureter, unspecified (3) Anemia: Status post transfusion of 1 unit packed red blood cells, Hemoglobin 8.9 today Status: Acute Qualifiers: Anemia type: unspecified type Qualified Code(s): D64.9 - Anemia, unspecified Code(s): D64.9 - Anemia, unspecified (4) Pleural effusion: Right-sided pleural effusion Thoracentesis performed on 05/07/2019 with 1300 mL of fluid removed. Pleural fluid studies sent Status: Acute Code(s): J90 - Pleural effusion, not elsewhere classified (5) Acute UTI: Acute on chronic UTI with chronic indwelling Morin catheter. Culture showing Proteus, transition to Rocephin Status: Acute Code(s): N39.0 - Urinary tract infection, site not specified (6) Acute hyperkalemia: Continue with diuresis today Status: Acute Code(s): E87.5 - Hyperkalemia (7) Sepsis: Bacteremia with gram-negative rods, urine culture sensitive to Rocephin. Urine culture today showing Proteus: Changed to Rocephin today. 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 Patient has chronic a aphasia. He is at baseline at this time Chronic Morin catheter placement: Followed by urology History of peripheral vascular disease status post right latja-dmf-wwib amputation Coronary artery disease with a history of CABG History of DVT: No longer on anticoagulation due to a chronic anemia Diastolic congestive heart failure:. Echocardiogram showed LVEF of 55%. 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 Coding Level of Care Code Acute Level Vial Grinder for g Fwd Exam Detailed Diagnoses Aspiration pneumonia J69.0 Acute renal insufficiency N28.9 Anemia D64.9 Anemia type: unspecified type Pleural effusion J90 Acute UTI N39.0 Acute hyperkalemia E87.5 Sepsis A41.9 Sepsis acute organ dysfunction status: without acute organ dysfunction Sepsis type: sepsis due to unspecified organism
[2019-05-07 11:20] LABS: Glucose Point of Care 151 mg/dL (70-110)
[2019-05-07 11:32] LABS: ALBUMIN 2.6 g/dL (3.8-4.8); ALPHA 1 GLOBULIN 0.6 g/dL (0.2-0.3); ALPHA 2 GLOBULIN 0.7 g/dL (0.5-0.9); BETA 1 GLOBULIN 0.5 g/dL (0.4-0.6); BETA 2 GLOBULIN 0.4 g/dL (0.2-0.5); GAMMA GLOBULIN 1.1 g/dL (0.8-1.7)
--- NOTE | 2019-05-07 11:56 | P.PN_ITS ---
Subjective Subjective: Interval history: Patient awake in bed at time of exam today. feels ok today, a littl1 more confused today than yesterday. Remains very edematous. Per RN report the urine output was not excellent in response to lasix gtt overnight Vitals/I&O/Wt Last Vital Signs Temp 98.3 F 05/07/19 08:00 Pulse 92 05/07/19 08:00 Resp 16 05/07/19 08:00 BP 115/82 05/07/19 08:00 Pulse Ox 97 05/07/19 08:00 05/06/19 05/07/19 05/07/19 22:59 06:59 14:59 Intake Total 170 / 890 299.45 / 1189.45 116.13 / 116.13 Output Total 200 / 350 220 / 570 Balance -30 / 540 79.45 / 619.45 116.13 / 116.13 Weight last 48 hrs Weight 90.492 kg Weight 90.265 kg Weight 89.443 kg Physical Exam Const: COMMON NORMALS: no apparent distress and oriented x3 HENMT: THROAT: no uvular edema Neck/C-Spine: COMMON NORMALS: no JVD Chest: COMMONS NORMALS: inspection of chest normal CHEST: No abnormal inspection of the chest and No symmetrical chest wall rise Resp: COMMON NORMALS: normal respiratory effort, no retractions and no use of accessory muscles; negative for clear to auscultation bilaterally (decreased air entry into the right lung ) AUSCULTATION: not clear to auscultation bilaterally (decreased air entry into the right lung ) Cardio: COMMON NORMALS: no JVD and regular rate RATE: regular rate GI: COMMON NORMALS: normal to inspection, nondistended, normoactive bowel sounds Extremity: COMMON NORMALS: normal to inspection and no clubbing, cyanosis or edema Neuro: COMMON NORMALS: oriented x3 Data : 05/07/19 05:20 05/07/19 05:20 Micro: Microbiology 05/06/19 12:00 Blood Culture - Preliminary Blood SPECIMEN COLLECTED 05/06/19 12:01 Blood Culture - Preliminary Blood SPECIMEN COLLECTED 05/04/19 09:19 Urine Culture - Final Urine,Clean Catch Proteus mirabilis A&P Additional A&P Information 1. Acute kidney injury - this likely relates to renal hypoperfusion from low blood pressure. It will not be related to anything he has received during this hospital stay i.e. antibiotics et cetera as the kidney damage was evident on admission. - UPCR 1.2 g/g ie not nephrotic. Low urine sodium and FE Na consistent with pre- renal hypoperfusive picture - his kidney function is currently very poor with the presence of hyperkalaemia this is concerning that he will need dialysis if this cannot be improved with conservative medical therapy - given the anasarca I'll give him lay six infusion at 10 mg per hour and today add metolazone - to support his haemodynamic so give me between 10 mg three times a day - serology pending inc serum protein electrophoresis, broadened serology to include SKY with reflex, compliments and ANCA levels. - Strict ins and outs 2. Pneumonia - is currently's receiving Zosyn. 3. Electrolytes. - Hyperkalemia; likely due to kidney damage. - marginally better since yesterday; combo diuretics will help if they are effective in prompting a diuresis 4. Pleural effusion - Management by Dr Nieves. I know a tap is being considered. 5. Hypotension - ching high; dc steroids - echo noted - being treated for infection - element of pulmHTN also; I'm hoping butch;l favorably respond to diuretics Consult was performed using telemedicine and the aid of the bedside nurse. MD Mp Carrasco renal telemedicine Attestations Medical Necessity Statement*: mgmt of renal failure Coding Level of Care Code Acute Lead Data Architect for [facility]
--- NOTE | 2019-05-07 12:41 | PC.SOCIAL ---
Pg 2 IMM Explained to pt Pg 2 IMM. Provided pt a signed copy & left on pt's bedside table. No questions voiced. Signed, dated, & timed then placed in chart.
[2019-05-07] MEDS: morphine 4 mg/mL SDV 1 mL 2 MG IVP ×2 (13:38→20:57)
--- NOTE | 2019-05-07 14:10 | PC.NURSE ---
Report called to MANUEL Marquez in ICU. Jolie, notified
--- NOTE | 2019-05-07 14:33 | XR_ITS ---
WS: [id number] XR chest 1V portable [id number] REASON FOR EXAM: s/p thoracentesis FINDINGS: Post thoracentesis on the right shows dramatic resolution of the pleural effusion on the ri ght a small amount obliterating the costophrenic angle. The PICC line remains in good position. The cardiac silhouette was not enlarged previous coronary bypass changes are seen. XR/XR chest 1V portable [id number] IMPRESSION: Improved right pleural effusion No pneumothorax identified. The PICC line remains in good position.
[2019-05-07 15:09] LABS: Mononuclear %, Pleural Fluid 50 %; Polynuclear Cells, Pleural % 50 %
--- NOTE | 2019-05-07 16:00 | PC.NURSE ---
Change in Pt Condition SPECIAL EFFECTS DESIGNER notified patient BP 78/54 body temp 96.6 axillary. Nurse assessed patient. Patient exhibits ammy lowe respirations, pulse ox 100% on 3L, patient pale with mottled extremities, cold to touch, patient arouses to name but was not able to communicate with nurse and more lethargic. Dr. Nieves notified. Physician assessed patient and gave verbal order to transfer patient to ICU.
--- NOTE | 2019-05-07 16:05 | PM.ACPR ---
Procedure/Consent Time out: Time Out Performed: Yes Consent: Consent for Procedure: Consent obtained from other (indicate) (, Jolie) Procedure Narrative: Name of the procedure: Right thoracentesis. Indication: Large Right Pleural Effusion Anesthetics: Local anesthesia with 1% lidocaine. IV pain medication: None. Description of the procedure: The procedure was explained to the patient in detail including the risks and a consent was obtained. The Right hemithorax was scanned with ultrasound to find a safe fluid pocket. Moderate free-flowing fluid was noted. There was no complexity. Following identification of the fluid pocket the site was marked. The site was cleaned using sterile technique. Lidocaine 1% was injected into the skin and the subcutaneous tissue. Subsequently, the periosteum in the parietal pleural was also anesthetized using lidocaine. The pleural space was entered in the posterior axillary line in the left seventh intercostal space. Serosanguineous fluid was aspirated. About 1300 cc of fluid was aspirated. Sample: The pleural fluid was sent for cell count and differential, pH, protein, LDH, albumin, Gram stain and culture, fungal stain and culture, AFB stain and culture and cytology. Postprocedure chest x-ray did not show any pneumothorax. Procedure performed under guidance of Dr. María Buchanan Acute Procedures Epistaxis Control: Time out performed: Yes
--- NOTE | 2019-05-07 16:15 | PC.NURSE ---
Thoracentesis Pre-procedure VS obtained at 1347: BP 70/51 Pulse ox 94% on [address] Nieves notified of the BP. Physician to continue with the procedure. Lidocaine administered at 1405. Patient tolerated well. Incision made at 1410. BP would not register on VS machine, Dr. Nieves gave verbal order to only monitor respiratory status throughout procedure. Patient pulse ox maintained 93-95% throughout the procedure on 3L NC. 1,300 ml of yellow fluid removed from R pleural cavity. Patient tolerated well. Post-procedure VS obtained at 1430: BP 99/64 pulse 90 Pulse ox 94% on 3L. Specimens collected and sent to lab. Chest x-ray ordered. Nurse to continue to monitor.
[2019-05-07] MEDS: cefTRIAXone 1,000 MG in sodium chloride 0.9% (plus) 50 ML 100 MG IV (16:24)
[2019-05-07 16:41] LABS: Creatinine Body Fluid 3.69 (0.7-1.2); LDH Pleural Fluid 102 U/L; Pleural Fluid Albumin 1.4 g/dL; Total Protein Pleural Fluid 2.4 g/dL; Triglycerides, Pleural Fluid 9 mg/dL
[2019-05-07 17:33] LABS: Appearance, Pleural Fluid CLEAR (CLEAR); Color, Pleural Fluid Pale Yellow (Pale Yellow)
[2019-05-07 17:34] LABS: PATH Referal YES
[2019-05-07] MEDS: metOLazone 5 MG Tablet PO (17:43)
[2019-05-07] MEDS: nystatin cream 30 gm 1 APPLIC TOPICAL (17:45)
[2019-05-07 18:11] LABS: Glucose Point of Care 127 mg/dL (70-110)
--- NOTE | 2019-05-07 20:50 | PC.NURSE ---
Spoke at great length with and daughter of patient in regards to treatment of patient of Dialysis. 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 This course may treat short time needs. Daughter brought up discussion of quality vs quantity of life for patient. and daughter live in [place] and patient resided [facility] [place]. Patient has verbalized to family in past he does not want to leave there as staff is familiar with him and is able to communicate with him well. is leaning towards comfort measures as she feels he does not need to be put through more treatment.
[2019-05-07 21:49] LABS: Glucose Point of Care 119 mg/dL (70-110)
[2019-05-08] VITALS (26 sets, daily range): BP systolic 48–124; BP diastolic 39–79; PULSE 76–94; RESP 13–22; TEMP 35.7–36.2; O2SAT 74–92; BMI 26.2
[2019-05-08] MEDS: morphine 4 mg/mL SDV 1 mL 2 MG IVP ×3 (01:43→09:55)
[2019-05-08 04:37] LABS: Basophils % 0.1 %; Hematocrit 34.2 % (42.0-52.0); Hemoglobin 9.3 g/dL (11.7-16.6); Lymphocytes # 0.8 10^3/uL (0.8-4.8); Lymphocytes % 4.6 %; Mean Corpuscular HGB Conc 27.2 g/dL (30.0-36.0); Mean Corpuscular Hemoglobin 25.3 pg (28.0-34.0); Mean Corpuscular Volume 93.2 fL (80-94); Mean Platelet Volume 11.1 fL (7.4-10.4); Monocytes # 1.4 10^3/uL (0.2-0.9); Monocytes % 8.6 %; Neutrophils # 13.8 10^3/uL (1.8-7.7); Neutrophils % 85.6 %; Nucleated Red Blood Cells % 0.2 %; Platelet Count 280 10^3/cmm (130-400); Red Blood Count 3.67 10^6/uL (4.1-5.3); Red Cell Distribution Width 18.7 % (12.1-15.1); White Blood Count 16.1 10^3/uL (4.0-10.0)
[2019-05-08 04:54] LABS: Blood Urea Nitrogen 75 mg/dL (8-23); Calcium 8.2 mg/dL (8.5-10.5); Carbon Dioxide 20 mmol/L (22-29); Chloride 92 mmol/L (98-107); Glucose 124 mg/dL (65-115); Osmolality Calculated 269 mOsm/kg (285-295); Sodium 129 mmol/L (136-145)
[2019-05-08] MEDS: FUROsemide 100 MG in sodium chloride 0.9% 40 ML IV (06:18)
[2019-05-08 07:45] LABS: Glucose Point of Care 123 mg/dL (70-110)
[2019-05-08] MEDS: midodrine 5 mg TABLET 10 MG PO (09:01)
[2019-05-08] MEDS: ferrous sulfate EC 325 mg Tablet PO (09:01)
[2019-05-08] MEDS: metoprolol tartrate 25 mg Tablet 12.5 MG PO (09:02)
[2019-05-08] MEDS: metOLazone 5 MG Tablet PO (09:02)
--- NOTE | 2019-05-08 09:41 | USR_ITS ---
PROCEDURE INFORMATION: Exam: US Duplex Lower Extremity Arteries Exam date and time: 05/08/2019 9:42 AM Age: 73 years old Clinical indication: Cold left foot; prior right AKA. TECHNIQUE: Imaging protocol: Real-time ultrasound scan of the arteries of the bilateral lower extremities with 2-D peguero scale, color Doppler flow and spectral waveform analysis. COMPARISON: No relevant prior studies available. FINDINGS: Right common femoral artery: PSV = 49.7 cm/sec. Monophasic waveform. Right superficial femoral artery: PSV = 125.8 cm/sec. Monophasic waveform. Right popliteal artery: Surgically absent. Right calf/foot arteries: Surgically absent. Left common femoral artery: PSV = 32.9 cm/sec. Monophasic, tardus parvus waveform (similar finding in left external iliac artery). Left superficial femoral artery: PSV = 46.7 cm/sec. Monophasic, tardus parvus waveform. Left popliteal artery: PSV = 32.9 cm/sec. Biphasic waveform with rounded peak, early systolic forward flow, followed by early diastolic reversal of flow, then no flow in late diastole. Left calf/foot arteries: No definite flow in calf tibial arteries on color flow Doppler exam. Questionable trace systolic flow vs artifact in dorsalis pedis artery. US/[place] [id number] IMPRESSION: 1. Findings consistent with a significant left iliac inflow stenosis. 2. 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 Needs to be correlated with duration of onset of symptoms, and whether there are risk factors for acute arterial embolism (e.g. coagulopathy) or tibial arteriopathy (e.g. diabetes, smoking).
[2019-05-08] MEDS: HYDROmorphone 1 mg/mL INJ 1 mL 2 MG IV (11:19)
--- NOTE | 2019-05-08 12:54 | PM.PN ---
Subjective Subjective: Interval history: I am seeing him in follow up for renal failure. Pt continues to get worse, found to have bluish discoloration of toes Medications: Reviewed: Yes Vitals/I&O/Wt Last Vital Signs Temp 97.1 F L 05/08/19 10:00 Pulse 85 05/08/19 12:00 Resp 21 H 05/08/19 12:00 BP 104/79 05/08/19 12:00 Pulse Ox 90 05/08/19 12:00 05/07/19 05/08/19 05/08/19 22:59 06:59 14:59 Intake Total 95.583 / 451.713 46.75 / 498.463 Output Total 100 / 100 100 / 200 Balance -4.417 / 351.713 -53.25 / 298.463 Weight last 48 hrs Weight 90.378 kg Weight 90.492 kg Physical Exam Narrative: EXAM NARRATIVE: Pt awake,confused Resp: AUSCULTATION: crackles Cardio: COMMON NORMALS: regular rate, S1 normal heart sound and S2 normal heart sound RATE: regular rate HEART SOUNDS: S1 normal and S2 normal GI: AUSCULTATION: Yes normoactive bowel sounds Extremity: GENERAL: Yes edema OTHER: Bluish discoloration of toes Data : 05/08/19 04:10 05/08/19 04:10 Micro: Microbiology 05/04/19 08:57 Blood Culture - Preliminary Blood Proteus mirabilis 05/07/19 14:30 Gram Stain - Final Pleural Fluid Body Fluid Culture - Preliminary 05/06/19 12:00 Blood Culture - Preliminary Blood NEGATIVE TO DATE 05/06/19 12:01 Blood Culture - Preliminary Blood NEGATIVE TO DATE A&P Assessment and plan (1) Acute renal insufficiency: Kidney function still worse. As per pt's nurse family decided to go with hospice care. So will sign off. Call if decision changes Status: Acute Code(s): N28.9 - Disorder of kidney and ureter, unspecified Attestations Medical Necessity Statement*: renal failure Coding Level of Care Code Acute News Broadcaster for Chg Fwd Exam Expanded Problem Focused Diagnoses Acute renal insufficiency N28.9
--- NOTE | 2019-05-08 12:59 | PC.NURSE ---
foot with bluish hue noted and cold to touch unable to palpate pulse or dopple pulse family aware and ultrasound done to start heparin gtt discussed with family .. have decided that he would be poor candidate for dyialisis or surgery as he is discussed comfort care
[2019-05-08 13:17] LABS: Anti-Nuclear Antibody Screen NEGATIVE (NEGATIVE)
--- NOTE | 2019-05-08 15:34 | P.PN_ITS ---
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 -Patient has sepsis secondary to UTI, urine cultures growing Proteus,, blood culture growing Proteus, on Rocephin currently out of sepsis -Likely has aspiration pneumonia and aspiration pneumonitis getting Rocephin -Has acute renal failure, with hyperkalemia currently on a Lasix drip, unfortunately kidney function is worsening, and he will eventually require d ialysis -Patient had a thoracocentesis yesterday, unfortunate had a hypotensive episode after, which in part can worsen his renal perfusion, and worsen his kidney function, although blood pressures remained stable -Patient's left lower extremity, no DP PT pulses, very cool, clammy, blue mottled appearance, findings concerning for acute limb ischemia, arterial study showed left iliac inflow stenosis, occlusion of the distal left popliteal/trifurcation artery and or three-vessel tibial arterial pathway, likely acute. Patient will likely require a heparin drip, and surgical evaluation to prevent acute limb ischemia, and salvage the left lower extremity. Patient said yes to have having a lot of pain in his left lower extremity. -Patient has a history of a stroke, has right hemiplegia, bedbound, Darlene lift, has a poor functional status -At times patients family would refuse fingersticks for blood sugar checks After discussion of the risks and benefits, risks and benefits of continuing in terventions, risks and benefits of placing a dialysis catheter for dialysis, risks and benefits of dialysis, risks and benefits of continuing Lasix drip, risks and benefits of continuing medical interventions for infection, and sepsis and UTI, risks and benefits of continuing interventions for acute left limb ischemia patient's family wanted to go ahead and pursue comfort care and hospice. I had a lengthy discussion about hospice and comfort care, patient family voiced understanding, all questions answered, patient's family wants to proceed with comfort care and if possible hospice. Patient's family wants to pursue comfort care while he is here in the hospital, will start comfort care order set, and I will have case workers come by and talk to patient and family about hospice. I was able to also communicate with the patient about all the above findings, he also said yes to comfort care, yes to hospice, yes to not pursuing further medical care for his ischemic left foot, said yes to not pursuing further interventions for his acute renal failure, also said yes to stopping all interve ntions. Vitals/I&O/Wt Last Vital Signs Temp 97.1 F L 05/08/19 10:00 Pulse 87 05/08/19 14:00 Resp 13 05/08/19 14:00 BP 116/69 05/08/19 14:00 Pulse Ox 92 05/08/19 14:00 05/08/19 05/08/19 05/08/19 06:59 14:59 22:59 Intake Total 46.75 / 498.463 Output Total 100 / 200 Balance -53.25 / 298.463 Weight last 48 hrs Weight 90.378 kg Weight 90.492 kg Physical Exam Const: GENERAL APPEARANCE: cooperative NUTRITIONAL APPEARANCE: obese ORIENTATION/CONSCIOUSNESS: Yes awake and Yes oriented to person; not oriented to place and not oriented to time Eye: COMMON NORMALS: PERRL PUPIL: Yes PERRL Neck/C-Spine: COMMON NORMALS: full ROM and no lymphadenopathy Chest: COMMONS NORMALS: inspection of chest normal Resp: COMMON NORMALS: normal respiratory effort, no retractions and no use of accessory muscles AUSCULTATION: diminished lung sounds OTHER: Able to say yes or no Cardio: COMMON NORMALS: regular rate, regular rhythm, S1 normal heart sound and S2 normal heart sound RATE: regular rate RHYTHM: regular rhythm HEART SOUNDS: S1 normal and S2 normal GI: COMMON NORMALS: normal to inspection, nondistended, normoactive bowel sounds, non-tender and no hepatosplenomegaly PALPATION: Yes no hepa tosplenomegaly Extremity: NARRATIVE EXTREMITY EXAM: Right lower extremity AKA Left lower extremity, no B DP PT pulses palpable, no DP PT pulses dopplerable, patient has a lot of pain in the left lower extremity, pain with range of mot ion, are very cool, clammy, mottled appearance, blue appearing Neuro: SENSORIUM/ORIENTATION: Yes oriented to person, No oriented to place and No oriented to time Data : 05/08/19 04:10 05/08/19 04:10 Micro: Microbiology 05/04/19 08:57 Blood Culture - Preliminary Blood Proteus mirabilis 05/07/19 14:30 Gram Stain - Final Pleural Fluid Body Fluid Culture - Preliminary 05/06/19 12:00 Blood Culture - Preliminary Blood NEGATIVE TO DATE 05/06/19 12:01 Blood Culture - Preliminary Blood NEGATIVE TO DATE A&P Assessment and plan (1) Aspiration pneumonia: Initial concern for aspiration pneumonia But patient also with large pleural effusion on the right. Initially on Zosyn due to concern for pneumonia. However more likely patient symptom from urinary tract infection and his respiratory symptoms were all from right-sided effusion. Will de-escalate antibiotic coverage and continue on Rocephin at this time. Status: Acute Code(s): J69.0 - Pneumonitis due to inhalation of food and vomit (2) Acute renal insufficiency: Appreciate nephrology consultation. BUN improving today slightly with creatinine remaining at 3.3 and patient remaining hyperkalemic. May ultimately require dialysis if no improvement. This was discussed with patient's today, she is uncertain if she would want dialysis for him. She will discussed with patient tomorrow and make this decision if indicated. Concern for renal hypoperfusion therefore continued on Midodrine. On Lasix drip per nephrology. Will follow up with nephrology recommendations. Status: Acute Code(s): N28.9 - Disorder of kidney and ureter, unspecified (3) Anemia: Status post transfusion of 1 unit packed red blood cells, Hemoglobin 8.9 today Status: Acute Qualifiers: Anemia type: unspecified type Qualified Code(s): D64.9 - Anemia, unspecified Code(s): D64.9 - Anemia, unspecified (4) Pleural effusion: Right-sided pleural effusion Thoracentesis performed on 05/07/2019 with 1300 mL of fluid removed. Pleural fluid studies sent Status: Acute Code(s): J90 - Pleural effusion, not elsewhere classified (5) Acute UTI: Acute on chronic UTI with chronic indwelling Morin catheter. Culture showing Proteus, transition to Rocephin Status: Acute Code(s): N39.0 - Urinary tract infection, site not specified (6) Acute hyperkalemia: Continue with diuresis today Status: Acute Code(s): E87.5 - Hyperkalemia (7) Sepsis: Bacteremia with gram-negative rods, urine culture sensitive to Rocephin. Urine culture today showing Proteus: Changed to Rocephin today. Blood culture appears to be growing Proteus as well according to micro lab, will continue to monitor closely PICC line placed 05/06/2019 Status: Acute Qualifiers: Sepsis acute organ dysfunction status: without acute organ dysfunction Sepsis type: sepsis due to unspecified organism Qualified Code(s): A41.9 - Sepsis, unspecified organism Code(s): A41.9 - Sepsis, unspecified organism (8) Limb ischemia: -Acute left limb ischemia -arterial ultrasound shows -1. Findings consistent with a significant left iliac inflow stenosis. 2. 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 Needs to be correlated with duration of onset of symptoms, and whether there are risk factors for acute arterial embolism (e.g. coagulopathy) or tibial arteriopathy (e.g. diabetes, smoking). 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 Patient has chronic a aphasia. He is at baseline at this time Chronic Morin catheter placement: Followed by urology History of peripheral vascular disease status post right [id number] amputation Coronary artery disease with a history of CABG History of DVT: No longer on anticoagulation due to a chronic anemia Diastolic congestive heart failure:. Echocardiogram showed LVEF of 55%. 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 Hypoalbuminemia: Discussed with patient's the consideration of possible feeding tube, she is uncertain if she would want this, will continue to discuss further with family DVT prophylaxis: SCD to the left lower extremity, no pharmacologic prophylaxis due to concern for anemia Diet: Mechanical soft CODE STATUS: Do Not Resuscitate by snf records Attestations Medical Necessity Statement*: Patient is comfort care, proceeding to hospice Coding Level of Care Code 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
--- NOTE | 2019-05-08 18:05 | PC.NURSE ---
blood pressure and stats are dropping blood pressure is 74/57 resp rate is at 13
--- NOTE | 2019-05-08 19:15 | PC.NURSE ---
pt with and daughter at bedside Dr sheehan
--- NOTE | 2019-05-08 19:17 | PM.DDS ---
Discharge Providers DDS Date of Admission: 05/04/19 12:42 Date Summary Completed: 05/08/19 Attending Provider at Admission: Adeline Nieves DO Time of : 19:15 Attending Provider at Discharge: MD GEORGIA Coronado Diagnoses Hospital Diagnoses (1) Aspiration pneumonia: (2) Acute renal insufficiency: (3) Anemia: Qualifiers: Anemia type: unspecified type Qualified Code(s): D64.9 - Anemia, unspecified (4) Pleural effusion: (5) Acute UTI: (6) Acute hyperkalemia: (7) Sepsis: Qualifiers: Sepsis acute organ dysfunction status: without acute organ dysfunction Sepsis type: sepsis due to unspecified organism Qualified Code(s): A41.9 - Sepsis, unspecified organism (8) Limb ischemia: Reason for Visit Reason for Visit: Reason For Visit: weakness, dyspnea Summary Date and Time of : Date of : 05/08/19 Time of : 19:15 Summary: Summary: This is a 73-year-old male with a past medical history of 3 prior CVA, chronic aphasia says yes or no at baseline, chronic Morin, peripheral vascular disease, hypertension, 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 Patient is a chronic resident of [place], due to deficits from his prior strokes, right-sided flaccid paralysis, flexion contracture of the right upper extremity. Patient was admitted for sepsis secondary to UTI, and aspiration pneumonia, acute renal failure and hyperkalemia secondary to dehydration, large right pleural effusion. For patient's sepsis secondary to UTI and aspiration pneumonia, patient received broad-spectrum antibiotics, urine culture and blood cultures grew Proteus Mirabella's, patient antibiotic therapy was de-escalated. Patient and family proceeded to comfort care, interventions were stopped. For patient's right pleural effusion he received a bedside right thoracocentesis, had hypotensive episodes requiring ICU admission, blood pressure stabilized, did have worsening kidney function creatinine up to 3.6. On admission patient was found to have acute renal failure likely second to renal hypoperfusion, he also had resistant hyperkalemia, patient was started on medical therapy including Lasix drip with hemodynamic support, unfortunately patient's kidney function continued to worsen, after discussion with the family about dialysis and placement dialysis catheter, patient's family declined, pursued comfort care and hospice. Patient was found to have acute left limb ischemia, patient's family did not want surgical interventions, medical interventions, patient was monitored comfort care. 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 -Given patient's history of strokes, he has poor functional status, right sided flaccid paralysis, chronic a aphasia, chronic Morin dependent, he was a DNR/DNI, patient's family did not want aggressive interventions, wanted to above all for him to be comfortable -Patient has sepsis secondary to UTI, urine cultures growing Proteus,, blood culture growing Proteus, on Rocephin currently out of sepsis but had a PICC line in place, would require chronic IV antibiotic therapy for which family was not very keen on -Likely has aspiration pneumonia and aspiration pneumonitis getting Rocephin -Has acute renal failure, with hyperkalemia currently on a Lasix drip, unfortunately kidney function is worsening, and he will eventually require dialysis and dialysis catheter placement, -Patient had a thoracocentesis yesterday, unfortunately had a hypotensive episode after, which in part can worsen his renal perfusion, and worsen his kidney function, although blood pressures remained stable -Patient's left lower extremity, no DP PT pulses, very cool, clammy, blue mottled appearance, findings concerning for acute limb ischemia, arterial study showed left iliac inflow stenosis, occlusion of the distal left popliteal/trifurcation artery and or three-vessel tibial arterial pathway, likely acute. Patient will likely require a heparin drip, and surgical evaluation to prevent acute limb ischemia, and salvage the left lower extremity. Patient said yes to have having a lot of pain in his left lower extremity. -Patient has a history of a stroke, has right hemiplegia, bedbound, Darlene lift, has a poor functional status -At times patients family would refuse fingersticks for blood sugar checks After discussion of the risks and benefits, risks and benefits of continuing interventions, risks and benefits of placing a dialysis catheter for dialysis, risks and benefits of dialysis, risks and benefits of continuing Lasix drip, risks and benefits of continuing medical interventions for infection, and sepsis and UTI, risks and benefits of continuing interventions for acute left limb ischemia patient's family wanted to go ahead and pursue comfort care and hospice. I had a lengthy discussion about hospice and comfort care, patient family voiced understanding, all questions answered, patient's family wants to proceed with comfort care and if possible hospice. Patient's family wants to pursue comfort care while he is here in the hospital, will start comfort care order set, and comfort care was initiated, the process of hospice was also initiated. I was able to also communicate with the patient about all the above findings, he also said yes to comfort care, yes to hospice, yes to not pursuing further medical care for his ischemic left foot, said yes to not pursuing further interventions for his acute renal failure, also said yes to stopping all interventions in clinic for his diabetes and UTI, and bacteremia. Patient [id number] 05/08/2019 Additional Data: Advance directives?: No Discharge Plan Discharge Patient Disposition: Home, Self-Care Condition: Fair Prescriptions: Discontinued A&D Ointment See Rx Instructions .ROUTE .COMPLEX RF: 0 metformin 500 mg Tablet 500 mg PO BID RF: 0 acetaminophen 325 mg Tablet 650 mg PO Q4H PRN (Reason: Pain) RF: 0 albuterol sulfate 2.5 mg /3 mL (0.083 %) Solution For Nebulization 2.5 mg INHALATION Q6H PRN (Reason: Shortness Of Breath) RF: 0 nystatin 100,000 unit/gram Ointment 1 applic TOPICAL BID RF: 0 Henrietta 5-325 mg Tablet 1 - 2 tab PO Q4H PRN (Reason: Pain) RF: 0 loperamide 2 mg Tablet 2 mg PO QID PRN (Reason: Diarrhea) RF: 0 Milk of Magnesia 400 mg/5 mL Suspension 30 ml PO DAILY PRN (Reason: Constipation) RF: 0 Vitamin C 500 mg Tablet 500 mg PO BID RF: 0 bisacodyl 10 mg Suppository 10 mg AL DAILY PRN (Reason: Constipation) RF: 0 oseltamivir 75 mg Capsule 75 mg PO DAILY RF: 0 ferrous sulfate 325 mg (65 mg iron) Tablet 325 mg PO BID RF: 0 Enema Disposable 19-7 gram/118 mL Enema 118 ml AL DAILY PRN (Reason: Constipation) RF: 0 Colace 100 mg Capsule 100 mg PO BID RF: 0 Santyl 250 unit/gram Ointment See Rx Instructions .ROUTE .COMPLEX RF: 0 metoprolol tartrate 25 mg Tablet 12.5 mg PO BID RF: 0 selenium sulfide 2.25 % Shampoo 1 applic TOPICAL PRN RF: 0 Calzinc See Rx Instructions .ROUTE .COMPLEX RF: 0 Discharge Orders: Discharge Order (Routine); Ordered 05/08/19 Ordered By: Chris Wei Referrals: [facility] [Outside] Umberto Terry MD [Family Provider] - DS Attestations Time Spent in /Discharge Care*: greater than 30 min Quality - AMI: AMI present?: No Quality - Stroke: CVA present?: No Symptom Onset Unknown: No Quality - VTE: VTE present?: No Deep Vein Thrombosis/Pulmonary Embolism Present on Admission: No Coding Level of Care Code 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
[2019-05-09 20:05] LABS: ANCA Interp Negative (Negative)
== END 2019-05-08 17:00 | disposition expired | DRG 871 ==
LOC: ER 10:08 → MEDSURG 13:24 → ICU 05-07 16:01
PROVIDERS: Internal Medicine Nephrology; Admitting Provider Family Medicine; Emergency Provider Family Medicine; Family Provider Family Medicine; Visit Provider Family Medicine
DX: A41.50 Gram-negative sepsis, unspecified (principal); J69.0 Pneumonitis due to inhalation of food and vomit; N17.9 Acute kidney failure, unspecified; J90 Pleural effusion, not elsewhere classified; N39.0 Urinary tract infection, site not specified; I50.30 Unspecified diastolic (congestive) heart failure; I69.351 Hemiplegia and hemiparesis following cerebral infarction affecting right dominant side; E87.5 Hyperkalemia; I69.398 Other sequelae of cerebral infarction; Z86.718 Personal history of other venous thrombosis and embolism; Z89.611 Acquired absence of right leg above knee; I25.10 Atherosclerotic heart disease of native coronary artery without angina pectoris; Z95.1 Presence of aortocoronary bypass graft; D64.9 Anemia, unspecified; I73.9 Peripheral vascular disease, unspecified; Z66 Do not resuscitate; Z79.899 Other long term (current) drug therapy; Z79.84 Long term (current) use of oral hypoglycemic drugs; E88.09 Other disorders of plasma-protein metabolism, not elsewhere classified; Z74.01 Bed confinement status; I99.8 Other disorder of circulatory system; A41.89 Other specified sepsis; Z51.5 Encounter for palliative care; E86.0 Dehydration; I69.320 Aphasia following cerebral infarction; E86.1 Hypovolemia; Z87.891 Personal history of nicotine dependence
CPT/HCPCS: 12345; 36415; 36416; 36430; 36569; 36592; 36600; 71045; 76770; 80048; 80053; 80500; 81001; 82042; 82150; 82533; 82570; 82803; 82945; 82962; 83516; 83605; 83615; 83880; 83986; 84155; 84156; 84157; 84165; 84300; 84443; 84478; 84540; 85014; 85018; 85025; 85610; 86038; 86160; 86850; 86900; 86920; 87015; 87040; 87070; 87075; 87077; 87086; 87116; 87186; 87205; 87206; 87801; 87804; 88112; 88305; 89050; 92523; 92610; 93306; 93925; 93971; 94664; 96372; 96375; 97165; 99282; J0610; J0696; J1170; J1720; J1815; J1940; J2270; J2543; J7030; J7799; P9016; Q3014